=== PATIENT | male | born 1970 | race Hispanic/Latino ===

== ENCOUNTER 2016-07-04 09:53 | Emergency (ER) | payer OTHER, MEDICARE, MEDICAID ==
[2016-07-04 10:10] VITALS: RESP 18; TEMP 98.7; BMI 30.4
[2016-07-04] MEDS ORDERED: Naproxen 550 mg Tab PO STA (10:30)
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
[2016-07-04] MEDS ORDERED: Naproxen 550 mg Tab PO ONE (10:37)
[2016-07-04 12:08] VITALS: BP 126/72; PULSE 89
[2016-07-04 12:10] VITALS: O2SAT 97
--- NOTE | 2016-07-04 12:54 | RAD ---
PROCEDURE: Pelvis, left hip. HISTORY: trauma COMPARISON: None TECHNIQUE: Standard protocol for this study/examination. FINDINGS: There are no osseous abnormalities to suggest fracture. The pelvic ring is intact. Preserved femoral-acetabular relationship. Negative study for protrusio, subluxation or dislocation. Degenerative changes: None. IMPRESSION: No acute findings related to/accounting for the clinical presentation.
--- NOTE | 2016-07-04 12:55 | RAD ---
PROCEDURE: Left femur HISTORY: trauma COMPARISON: None TECHNIQUE: Standard protocol for this study/examination. FINDINGS: No significant/acute osseous, articular or soft tissue abnormalities. IMPRESSION: No acute findings related to/accounting for the clinical presentation.
== END 2016-07-04 12:20 | disposition home or self-care (01) ==
LOC: SUPCPDRO 09:53 → C.ER 09:53
DX: S73.102A Unspecified sprain of left hip, initial encounter (principal); V03.10XA Pedestrian on foot injured in collision with car, pick-up truck or van in traffic accident, initial encounter; Y92.410 Unspecified street and highway as the place of occurrence of the external cause

== ENCOUNTER 2017-10-26 23:29 | Inpatient (IN) | payer MEDICARE, MEDICAID ==
[2017-10-26 23:30] VITALS: BMI 30.4
--- NOTE | 2017-10-26 23:54 | C.PDOC ---
History Of Present Illness 47 yo hx of schizoprhenia, presents as transfer for admission to [facility]. pt has been reporting si. pt was medically cleared and accepted prior to his arrivlal today. denies any complaints at this time. Time Seen by Provider: 10/26/17 23:39 Chief Complaint (Nursing): Psychiatric Evaluation Past Medical History Reviewed: Historical Data, Nursing Documentation, Vital Signs Vital Signs: Last Vital Signs Temp 99 F 10/26/17 23:39 Pulse 79 10/26/17 23:39 Resp 20 10/26/17 23:39 BP 145/72 10/26/17 23:39 Pulse Ox 97 10/26/17 23:39 - Medical History PMH: Bronchitis, Cardia Arrhythmia, Depression, Schizophrenia (Schizoaffective disorder) Denies: Diabetes, Hepatitis, HIV, HTN, Chronic Kidney Disease, Seizures, Sexually Transmitted Disease - [facility] Procedures INDIVID PSYCHOTHERAP NEC (05/22/14) OTHER GROUP THERAPY (05/22/14) PSYCHIAT DRUG THERAP NEC (06/03/14) Family History: States: Unknown Family Hx - Social History Hx Tobacco Use: No Hx Alcohol Use: Yes Hx Substance Use: No - Immunization History Hx Tetanus Toxoid Vaccination: No Hx Influenza Vaccination: No Hx Pneumococcal Vaccination: No Review Of Systems Except As Marked, All Systems Reviewed And Found Negative. Physical Exam - Physical Exam Appears: Well, No Acute Distress Skin: Normal Color, Warm, Dry Eye(s): bilateral: Normal Inspection, PERRL, EOMI Nose: Normal Throat: Normal Neck: Normal Cardiovascular: Rhythm Regular Respiratory: Normal Breath Sounds Gastrointestinal/Abdominal: Normal Exam Back: Normal Inspection Extremity: Normal ROM ED Course And Treatment O2 Sat by Pulse Oximetry: 97 Medical Decision Making Medical Decision Making: for admission as transfer. no medical complaints. prevously cleared Disposition - Disposition Disposition: HOSPITALIZED Disposition Time: 23:53 Condition: STABLE - Clinical Impression Clinical Impression: Moderate major depression, single episode Decision To Admit - Pt Status Changed To: Hospital Disposition Of: Inpatient - Admit Certification Admit to Inpatient:: After my assessment, the patient will require hospitalization for at least two midnights. This is because of the severity of symptoms shown, intensity of services needed, and/or the medical risk in this patient being treated as an outpatient. - InPatient: Physician Admission Certification: I certify that this patient requires 2 or more midnights of care for the following reason:: si - . Bed Request Type: Psychiatry Admitting Physician: Shen Farley Patient Diagnosis: Moderate major depression, single episode
--- NOTE | 2017-10-27 01:51 | PCM.BM ---
Treatment Plan Problems - Problems identified on initial assessmt Depression Date Initiated: 10/27/17 Time Initiated: 01:49 Date resolved: 10/27/17 Assessment reference: NA Status: Active (hearing voices) Treatment assets and liabiliti Patient Assests: cooperative (pt. provided information about his illness.) Patient Liabilities: financial problems (leave in a skilled nursing, Pt. can not afford to pay rent), poor support system (leave alone in a skilled nursing, girlfriend moved to [facility]), medical problems (denies mdical problems), legal issue ( denies legal issues) - Milieu Protocol Maintain good personal hygiene: daily Encourage regular showers, daily Remind patient to perform daily oral care, every shift Assist patient to perform ADL's Conduct patient checks and document Observation sheet: Q15 minutes Maintain personal safety: every shift Educate patient to report safety concerns to staff, every shift Monitor environment for contraband/sharps Medication safety: Monitor for expected outcome, potential side effects: every shift, Assess barriers to learning: every shift, Assess readiness for medication education: every shift
[2017-10-27] MEDS ORDERED: Pneumococcal 23-Valent Vaccine IM ONE (02:07)
--- NOTE | 2017-10-27 22:56 | PCM.PSYCH ---
Initial Psychiatric Evaluation - Initial Psychiatric Evaluation Type of Admission: Voluntary Legal Status: Capacity Current Medications: Active Medications Generic Name Dose Route Start Last Admin Trade Name Freq PRN Reason Stop Dose Admin Hydroxyzine HCl 25 mg 10/27/17 02:48 10/27/17 17:07 Atarax PO 25 mg Q6 PRN Administration Anxiety Ibuprofen 400 mg 10/27/17 02:47 Motrin Tab PO Q6 PRN Pain, moderate (4-7) Pneumococcal Polyvalent Vaccine 0.5 ml 10/30/17 10:00 Pneumovax 23 Vaccine IM 10/30/17 10:01 .ONCE ONE Trazodone HCl 100 mg 10/27/17 02:15 10/27/17 21:31 Desyrel PO 100 mg HS MELISSA Administration Past Psychiatric History - Past Psychiatric History Pertinent Medical Hx (Current Medical&Sleep Prob, Allergies): Allergies Allergy/AdvReac Type Severity Reaction Status Date / Time No Known Allergies Allergy Verified 10/26/17 23:43 Depakote ER 250 mg PO BID 10/26/17 Hydroxyzine Pamoate 100 mg PO HS PRN 10/26/17 Risperidone [Risperdal] 2 mg PO DAILY 10/26/17
[2017-10-28 06:17] VITALS: O2SAT 100
--- NOTE | 2017-10-28 12:24 | PCM.PYCHPN ---
Psychiatric Progress Note - Psychiatric Progress Note Patient seen today, length of contact: 15 min Patient Chief Complaint: I am still hearing voices.' Problems Identified/Issues Discussed: Patient seen and evaluated, chart reviewed and discussed with the nurse. Patient remained disorganized and internally preoccupied. Patient remained isolated, confined and withdrawn. He still reports of hearing voices. Patient still appears paranoid and delusional. He still reports irritability, agitation and racing of thoughts. He is taking medication and denies any side effects. Symptoms are improving but needs more time for stabilization. Supportive therapy and psychoeducation were given. Medication Change: Yes Medical Record Reviewed: Yes Mental Status Examination - Cognitive Function Orientation: Person, Place, Situation, Time Memory: Intact Attention: WNL Concentration: Poor Association: Loose Fund of Knowledge: Poor - Mood Mood: Anxious - Affect Affect: Broad - Speech Speech: Pressured - Formal Thought Process Formal Thought Process: Hallucinations, Delusions, Paranoia, Loosening of associations, Flight of ideas - Suicidal Ideation Suicidal Ideation: No - Homicidal Ideation Homicidal Ideation: No Goal/Treatment Plan - Goal/Treatment Plan Need for Continued Stay: Remain at risks for inpatient hospitalization, Severe depression anxiety, Severe functional impairment Progress Toward Problem(s) and Goals/Treatment Plan: Schizoaffective disorder Risperdal 1 mg po BID Cogentin 1 mg PO BID Klonopn 1 mg PO BID Will titrate his medication according to his response. PRN meds for psychosis and carla Psychoeducation Supportive therapy provided Medication benefits and side effects discussed with the pt. Will consider to start [place] for his manic symptoms. Monitor vitals. - Smoking Cessation Smoking Cessation Initiated: No
[2017-10-30] MEDS ORDERED: Pneumococcal 23-Valent Vaccine IM ONE (10:00)
--- NOTE | 2017-10-30 14:40 | PCM.PYCHPN ---
Psychiatric Progress Note - Psychiatric Progress Note Patient seen today, length of contact: 15 min Patient Chief Complaint: I am still hearing voices.' Problems Identified/Issues Discussed: Patient seen and evaluated, chart reviewed and discussed with the nurse. The patient reports that he is still thinking of killing himself and still hears voices. He states that he doesnt know what he will do once he is discharged from the hospital as he does not want to [facility] the [facility]. The patient states that he will kill himself if he goes back to the [facility]. He states that he still hears a voice that is telling him to hurt himself. He is taking medication and denies any side effects. Symptoms are improving but needs more time for stabilization. Supportive therapy and psychoeducation were given. Medication Change: Yes Medical Record Reviewed: Yes Mental Status Examination - Cognitive Function Orientation: Person, Place, Situation, Time Memory: Intact Attention: WNL Concentration: Poor Association: Loose Fund of Knowledge: Poor - Mood Mood: Anxious - Affect Affect: Broad - Speech Speech: Pressured - Formal Thought Process Formal Thought Process: Hallucinations, Delusions, Paranoia, Loosening of associations, Flight of ideas - Suicidal Ideation Suicidal Ideation: No - Homicidal Ideation Homicidal Ideation: No Goal/Treatment Plan - Goal/Treatment Plan Need for Continued Stay: Remain at risks for inpatient hospitalization, Severe depression anxiety, Severe functional impairment Progress Toward Problem(s) and Goals/Treatment Plan: Schizoaffective disorder Risperdal 1 mg po BID Cogentin 1 mg PO BID Klonopn 1 mg PO BID Will titrate his medication according to his response. PRN meds for psychosis and carla Psychoeducation Supportive therapy provided Medication benefits and side effects discussed with the pt. Will consider to start [place] for his manic symptoms. Monitor vitals. Attend groups and activities daily
--- NOTE | 2017-11-01 07:59 | PCM.PYCHPN ---
Psychiatric Progress Note - Psychiatric Progress Note Patient seen today, length of contact: 15 min Patient Chief Complaint: I am still hearing voices.' Problems Identified/Issues Discussed: Patient seen and evaluated, chart reviewed and discussed with the nurse. The patient reports that he is still thinking of killing himself and still hears voices. He states that he doesnt know what he will do once he is discharged from the hospital as he does not want to go live in the [place] [facility]. The patient states that he will kill himself if he goes back to the [place] [facility]. He states that he still hears a voice that is telling him to hurt himself. He is taking medication and denies any side effects. Symptoms are improving but needs more time for stabilization. Supportive therapy and psychoeducation were given. Medication Change: Yes Medical Record Reviewed: Yes Mental Status Examination - Cognitive Function Orientation: Person, Place, Situation, Time Memory: Intact Attention: WNL Concentration: Poor Association: Loose Fund of Knowledge: Poor - Mood Mood: Anxious - Affect Affect: Broad - Speech Speech: Pressured - Formal Thought Process Formal Thought Process: Hallucinations, Delusions, Paranoia, Loosening of associations, Flight of ideas - Suicidal Ideation Suicidal Ideation: No - Homicidal Ideation Homicidal Ideation: No Goal/Treatment Plan - Goal/Treatment Plan Need for Continued Stay: Remain at risks for inpatient hospitalization, Severe depression anxiety, Severe functional impairment Progress Toward Problem(s) and Goals/Treatment Plan: Schizoaffective disorder Risperdal 1 mg po BID Cogentin 1 mg PO BID Klonopn 1 mg PO BID Will titrate his medication according to his response. PRN meds for psychosis and carla Psychoeducation Supportive therapy provided Medication benefits and side effects discussed with the pt. Will consider to start [place] for his manic symptoms. Monitor vitals. Attend groups and activities daily
--- NOTE | 2017-11-01 11:35 | PCM.BM ---
<NishLeela Berrios - Last Filed: 11/01/17 11:35> Treatment Plan Problems - Problems identified on initial assessmt Depression Date Initiated: 10/27/17 Time Initiated: 49 Date resolved: 10/27/17 Assessment reference: NA Status: Active (hearing voices) Treatment assets and liabiliti Patient Assests: cooperative (pt. provided information about his illness.) Patient Liabilities: financial problems (leave in a care home, Pt. can not afford to pay rent), poor support system (leave alone in a care home, girlfriend moved to [facility]), medical problems (denies mdical problems), legal issue ( denies legal issues) - Milieu Protocol Maintain good personal hygiene: daily Encourage regular showers, daily Remind patient to perform daily oral care, every shift Assist patient to perform ADL's Conduct patient checks and document Observation sheet: Q15 minutes Maintain personal safety: every shift Educate patient to report safety concerns to staff, every shift Monitor environment for contraband/sharps Medication safety: Monitor for expected outcome, potential side effects: every shift, Assess barriers to learning: every shift, Assess readiness for medication education: every shift Milieu Narrative: Schizoaffective disorder Risperdal 1 mg po BID Cogentin 1 mg PO BID Klonopn 1 mg PO BID Will titrate his medication according to his response. PRN meds for psychosis and carla Psychoeducation Supportive therapy provided Medication benefits and side effects discussed with the pt. Will consider to start [place] for his manic symptoms. Monitor vitals. Attend groups and activities daily Discharge/Continuing Care - Treatment Team Participation Patient/Family/SO Statement: Schizoaffective disorder Risperdal 1 mg po BID Cogentin 1 mg PO BID Klonopn 1 mg PO BID Will titrate his medication according to his response. PRN meds for psychosis and carla Psychoeducation Supportive therapy provided Medication benefits and side effects discussed with the pt. Will consider to start [place] for his manic symptoms. Monitor vitals. Attend groups and activities daily Treatment Plan Review - Problem Depression Time Initiated: - Discharge / Continuing Care Discharge to:: Longterm Behavioral Health Services: Adult day care Health Needs: Medications/Rx, Alcohol/Drug treatment <Justin Israel - Last Filed: 11/04/17 11:06> - Diagnosis (1) Depressed Status: Acute Interventions: 11/04/17 11:06 * Assess/adjust medications daily and /or as needed * See patient on an individual basis 7x/week to assess symptoms of depression * Monitor for side effects & effectiveness of medications *
--- NOTE | 2017-11-02 15:04 | PCM.PYCHPN ---
Psychiatric Progress Note - Psychiatric Progress Note Patient seen today, length of contact: 15 min Patient Chief Complaint: I am still hearing voices.' Problems Identified/Issues Discussed: Patient seen and evaluated, chart reviewed and discussed with the nurse. The patient reports that he is still thinking of killing himself and still hears voices. He states that he doesnt know what he will do once he is discharged from the hospital as he does not want to go live in the detention. The patient states that he will kill himself if he goes back to the detention. He states that he still hears a voice that is telling him to hurt himself. He is taking medication and denies any side effects. Symptoms are improving but needs more time for stabilization. Supportive therapy and psychoeducation were given. Medication Change: Yes Medical Record Reviewed: Yes Mental Status Examination - Cognitive Function Orientation: Person, Place, Situation, Time Memory: Intact Attention: WNL Concentration: Poor Association: Loose Fund of Knowledge: Poor - Mood Mood: Anxious - Affect Affect: Broad - Speech Speech: Pressured - Formal Thought Process Formal Thought Process: Hallucinations, Delusions, Paranoia, Loosening of associations, Flight of ideas - Suicidal Ideation Suicidal Ideation: No - Homicidal Ideation Homicidal Ideation: No Goal/Treatment Plan - Goal/Treatment Plan Need for Continued Stay: Remain at risks for inpatient hospitalization, Severe depression anxiety, Severe functional impairment Progress Toward Problem(s) and Goals/Treatment Plan: Schizoaffective disorder Risperdal 1 mg po BID Cogentin 1 mg PO BID Klonopn 1 mg PO BID Will titrate his medication according to his response. PRN meds for psychosis and carla Psychoeducation Supportive therapy provided Medication benefits and side effects discussed with the pt. Will consider to start [place] for his manic symptoms. Monitor vitals. Attend groups and activities daily
--- NOTE | 2017-11-02 15:04 | PCM.PYCHPN ---
Psychiatric Progress Note - Psychiatric Progress Note Patient seen today, length of contact: 15 min Patient Chief Complaint: I am still hearing voices.' Problems Identified/Issues Discussed: Patient seen and evaluated, chart reviewed and discussed with the nurse. The patient reports that he is still thinking of killing himself and still hears voices. He states that he doesnt know what he will do once he is discharged from the hospital as he does not want to go live in the correction. The patient states that he will kill himself if he goes back to the correction. He states that he still hears a voice that is telling him to hurt himself. He is taking medication and denies any side effects. Symptoms are improving but needs more time for stabilization. Supportive therapy and psychoeducation were given. Medication Change: Yes Medical Record Reviewed: Yes Mental Status Examination - Cognitive Function Orientation: Person, Place, Situation, Time Memory: Intact Attention: WNL Concentration: Poor Association: Loose Fund of Knowledge: Poor - Mood Mood: Anxious - Affect Affect: Broad - Speech Speech: Pressured - Formal Thought Process Formal Thought Process: Hallucinations, Delusions, Paranoia, Loosening of associations, Flight of ideas - Suicidal Ideation Suicidal Ideation: No - Homicidal Ideation Homicidal Ideation: No Goal/Treatment Plan - Goal/Treatment Plan Need for Continued Stay: Remain at risks for inpatient hospitalization, Severe depression anxiety, Severe functional impairment Progress Toward Problem(s) and Goals/Treatment Plan: Schizoaffective disorder Risperdal 1 mg po BID Cogentin 1 mg PO BID Klonopn 1 mg PO BID Will titrate his medication according to his response. PRN meds for psychosis and carla Psychoeducation Supportive therapy provided Medication benefits and side effects discussed with the pt. Will consider to start [place] for his manic symptoms. Monitor vitals. Attend groups and activities daily
--- NOTE | 2017-11-04 00:20 | PCM.PYCHPN ---
Psychiatric Progress Note - Psychiatric Progress Note Patient seen today, length of contact: 15 min Patient Chief Complaint: I am still hearing voices.' Problems Identified/Issues Discussed: Patient seen and evaluated, chart reviewed and discussed with the nurse. The patient reports that he is still thinking of killing himself and still hears voices. He states that he doesnt know what he will do once he is discharged from the hospital as he does not want to go live in the prison. The patient states that he will kill himself if he goes back to the prison. He states that he still hears a voice that is telling him to hurt himself. He is taking medication and denies any side effects. Symptoms are improving but needs more time for stabilization. Supportive therapy and psychoeducation were given. Medication Change: Yes Medical Record Reviewed: Yes Mental Status Examination - Cognitive Function Orientation: Person, Place, Situation, Time Memory: Intact Attention: WNL Concentration: Poor Association: Loose Fund of Knowledge: Poor - Mood Mood: Anxious - Affect Affect: Broad - Speech Speech: Pressured - Formal Thought Process Formal Thought Process: Hallucinations, Delusions, Paranoia, Loosening of associations, Flight of ideas - Suicidal Ideation Suicidal Ideation: No - Homicidal Ideation Homicidal Ideation: No Goal/Treatment Plan - Goal/Treatment Plan Need for Continued Stay: Remain at risks for inpatient hospitalization, Severe depression anxiety, Severe functional impairment Progress Toward Problem(s) and Goals/Treatment Plan: Schizoaffective disorder Risperdal 1 mg po BID Cogentin 1 mg PO BID Klonopn 1 mg PO BID Will titrate his medication according to his response. PRN meds for psychosis and carla Psychoeducation Supportive therapy provided Medication benefits and side effects discussed with the pt. Will consider to start Basehor for his manic symptoms. Monitor vitals. Attend groups and activities daily
[2017-11-04 06:47] VITALS: BP 120/73; PULSE 92; RESP 20; TEMP 98.3
--- NOTE | 2017-11-04 11:02 | PCM.PYCHDC ---
Mental Status Examination - Mental Status Examination Orientation: Person, Place, Situation, Time Memory: Intact Mood: Neutral Affect: Constricted Speech: Soft Attention: WNL Concentration: WNL Association: WNL Fund of Knowledge: WNL Formal Thought Process: No Impairment Description of patient's judgement and insight: good, fair Psychotic Thoughts and Behaviors: denies any AVH Suicidal Ideation: No Current Homicidal Ideation?: No Discharge Summary - Discharge Note Consultations:: List each consultation separately and include: 1. Reason for request. 2. Findings. 3. Follow-up Summary of Hospital Course include:: 1. Description of specific treatment plan utilized for patients during their course of treatmen. 2. Summarize the time- course for resolution of acute symptoms and/or regressed behaviors. 3. Describe issues identified and worked on during hospitalization. 4. Describe medication utilized. 5. Describe medical problems identified and treated. 6. Reassessment of suicide risk - Final Diagnosis (DSM 5) Condition upon Discharge: STABLE Disposition: HOME/ ROUTINE Follow-up Treatment Plan: Schizoaffective disorder Risperdal 1 mg po BID Cogentin 1 mg PO BID Klonopn 1 mg PO BID Will titrate his medication according to his response. PRN meds for psychosis and carla Psychoeducation Supportive therapy provided Medication benefits and side effects discussed with the pt. Will consider to start Salix for his manic symptoms. Monitor vitals. Attend groups and activities daily Prescriptions/Medication Reconciliation: Benztropine [Cogentin] 1 mg PO BID #60 tab Gabapentin [Neurontin] 300 mg PO BID #60 cap risperiDONE [RisperDAL Tab] 2 mg PO BID #60 tab Sertraline [Zoloft] 100 mg PO DAILY #30 tab traZODone [Desyrel] 100 mg PO HS #30 tab
== END 2017-11-04 12:40 | disposition home or self-care (01) | DRG 885 ==
LOC: C.ER 23:29 → C.5E 23:44 → C.9E 23:44
PROC: GZHZZZZ Group Psychotherapy (ICD-10-PCS; principal; 2017-10-26)
DX: F25.9 Schizoaffective disorder, unspecified (principal); F32.1 Major depressive disorder, single episode, moderate

== ENCOUNTER 2017-12-25 17:37 | Inpatient (IN) | payer MEDICARE, MEDICAID ==
[2017-12-25 18:18] VITALS: BMI 31.6
[2017-12-25 19:18] LABS: BASO # 0.1 K/uL (0.0-0.2); BASO % 1.4 % (0.0-2.0); EOS # 0.5 K/uL (0.0-0.7); EOS % 4.6 % (0.0-4.0); HEMOGLOBIN 14.8 g/dL (12.0-18.0); LYMPH # 2.4 K/uL (1.0-4.3); MEAN CELL VOLUME 90.4 fL (80.0-94.0); MEAN CORPUSCULAR HEMOGLOBIN 31.9 pg (27.0-31.0); MEAN CORPUSCULAR HGB CONC 35.3 g/dL (33.0-37.0); MEAN PLATELET VOLUME 7.4 fL (7.2-11.7); MONO # 0.7 K/uL (0.0-0.8); MONO % 7.2 % (0.0-10.0); NEUT % 61.8 % (50.0-75.0); NRBC % 0.1 % (0.0-2.0); RBC 4.65 Mil/uL (4.40-5.90); RED CELL DISTRIBUTION WIDTH 13.5 % (11.5-14.5); WHITE BLOOD COUNT 9.7 K/uL (4.8-10.8)
--- NOTE | 2017-12-25 19:18 | C.PDOC ---
History Of Present Illness 47 year old male with PMHx of schizophrenia and depression taking multiple medications, presents to the ED for evaluation. Patient states his medications are no longer working and feels more depressed and is having trouble sleeping. Patient reports he is now hearing voices that tell him to take all his medications together at once. Patient sees Dr. Israel but did not call him today. Patient has prior history of suicide attempts by overdose. Patient denies HI, visual hallucinations, CP, SOB, nausea, vomit, injury, fall, trauma. Time Seen by Provider: 12/25/17 18:43 Chief Complaint (Nursing): Psychiatric Evaluation History Per: Patient History/Exam Limitations: no limitations Onset/Duration Of Symptoms: Days Current Symptoms Are (Timing): Still Present Suicide/Self Injury Attempted (Context): Ingestion Modifying Factor(s): Other Associated Symptoms: Depression, Suicidal Thoughts, Suicidal Plan Involuntary Hold By: None Recent travel outside of the [place]: No Additional History Per: Patient Past Medical History Reviewed: Historical Data, Nursing Documentation, Vital Signs Vital Signs: Last Vital Signs Temp 98.5 F 12/25/17 22:13 Pulse 93 H 12/25/17 22:13 Resp 18 12/25/17 22:13 BP 133/85 12/25/17 22:13 Pulse Ox 95 12/25/17 22:13 - Medical History PMH: Anxiety, Bronchitis, Cardia Arrhythmia, Depression, Schizophrenia Denies: Bipolar Disorder (PT DENIES), Diabetes, Hepatitis, HIV, HTN, Chronic Kidney Disease, Seizures, Sexually Transmitted Disease Surgical History: No Surg Hx - [facility] Procedures GROUP PSYCHOTHERAPY (10/26/17) INDIVID PSYCHOTHERAP NEC (05/22/14) OTHER GROUP THERAPY (05/22/14) PSYCHIAT DRUG THERAP NEC (06/03/14) Family History: States: Unknown Family Hx - Social History Hx Tobacco Use: No Hx Alcohol Use: Yes Hx Substance Use: No (PT DENIES) - Immunization History Hx Tetanus Toxoid Vaccination: No Hx Influenza Vaccination: No Hx Pneumococcal Vaccination: No Review Of Systems Constitutional: Negative for: Fever, Chills Cardiovascular: Negative for: Chest Pain Respiratory: Negative for: Shortness of Breath Gastrointestinal: Negative for: Nausea, Vomiting Neurological: Negative for: Weakness, Numbness Psych: Positive for: Depression, Suicidal ideation Physical Exam - Physical Exam Appears: Non-toxic, No Acute Distress Skin: Normal Color, Warm, Dry Head: Atraumatic, Normacephalic Eye(s): bilateral: Normal Inspection Oral Mucosa: Moist Neck: Normal ROM, Supple Chest: Symmetrical Cardiovascular: Rhythm Regular Respiratory: No Rales, No Rhonchi Gastrointestinal/Abdominal: Soft, No Tenderness, No Guarding, No Rebound Extremity: Normal ROM, No Tenderness, No Swelling Neurological/Psych: Oriented x3, Normal Speech, Normal Cognition Gait: Steady ED Course And Treatment - Laboratory Results Result Diagrams: 12/25/17 19:14 12/25/17 19:14 Lab Interpretation: No Acute Changes O2 Sat by Pulse Oximetry: 97 (ON RA) Pulse Ox Interpretation: Normal Progress Note: Patient is medically cleared for psychiatric admission. Medical Decision Making Medical Decision Making: Plan: * Labs * UA * 1:1 Obs * Crisis evaluation Disposition - Disposition Disposition: HOSPITALIZED Disposition Time: 23:02 Condition: STABLE - POA Present On Arrival: None - Clinical Impression Clinical Impression: Single major depressive episode, severe, with psychosis - Scribe Statement The provider has reviewed the documentation as recorded by the Scribe [place] All medical record entries made by the Scribe were at my direction and personally dictated by me. I have reviewed the chart and agree that the record accurately reflects my personal performance of the history, physical exam, medical decision making, and the department course for this patient. I have also personally directed, reviewed, and agree with the discharge instructions and disposition.
[2017-12-25 19:27] LABS: SQUAMOUS EPITHIAL < 1 /hpf (0-5); URINE BILIRUBIN NEGATIVE (NEGATIVE); URINE BLOOD NEGATIVE (NEGATIVE); URINE CLARITY Clear (Clear); URINE COLOR Yellow (YELLOW); URINE GLUCOSE (UA) NORMAL (Normal); URINE LEUKOCYTE ESTERASE NEG Leu/uL (Negative); URINE PROTEIN NEGATIVE (NEGATIVE); URINE UROBILINOGEN NORMAL mg/dL (0.2-1.0)
[2017-12-25 19:34] LABS: ALB/GLOB RATIO 1.5 (1.0-2.1); ALBUMIN 4.3 g/dL (3.5-5.0); ALT/SGPT 33 U/L (21-72); AST/SGOT 21 U/L (17-59); BLOOD UREA NITROGEN 13 mg/dL (9-20); CALCIUM 9.6 mg/dl (8.6-10.4); GFR NON-AFRICAN AMERICAN > 60
[2017-12-25 19:46] LABS: BARBITURATES, UR NEGATIVE (NEGATIVE); BENZODIAZEPINES, UR NEGATIVE (NEGATIVE); OPIATES, UR NEGATIVE (NEGATIVE); PHENCYCLIDINE, UR NEGATIVE (NEGATIVE)
--- NOTE | 2017-12-26 00:37 | PCM.BM ---
<Ramiro Ma - Last Filed: 12/26/17 00:34> Treatment Plan Problems - Problems identified on initial assessmt DEPRESSION Date Initiated: 12/26/17 Time Initiated: 00:00 Assessment reference: NA Status: Active Treatment assets and liabiliti Patient Assests: adapts well, cooperative (pt. provided information about his illness.), insightful, self-reliant, ADL independent, physically healthy, negotiates basic needs Patient Liabilities: live alone, financial problems, poor support system, substance abuse, legal issue - Milieu Protocol Maintain good personal hygiene: daily Encourage regular showers, daily Remind patient to perform daily oral care, daily Assist patient to perform ADL's Maintain personal safety: every shift Educate patient to report safety concerns to staff, every shift Monitor environment for contraband/sharps Medication safety: Monitor for expected outcome, potential side effects: every shift, Assess barriers to learning: every shift, Assess readiness for medication education: every shift <Justin Israel - Last Filed: 12/30/17 11:06> - Diagnosis (1) Schizoaffective disorder Status: Chronic Interventions: 12/30/17 11:07 * Assess/adjust medications daily and /or as needed * See patient on an individual basis 7x/week to assess status of hallucinations * Discuss risks, benefits, side effects and alternatives of medications * <Elma Bar - Last Filed: 12/30/17 14:44> Family Contact Family involvement: Patient does not wish Family/SO involvement Family contact: Patient declines to allow family contact at present - Goals for Treatment Patient goals for treatment: "[facility] Discharge/Continuing Care - Education Needs Education Needs: Patient Medication, Patient Diagnosis/Disease Process, Patient Coping Skills, Patient Placement options, Patient Community resources - Discharge Discharge Criteria: Free of Suicidal thoughts, Ability to care for self, Reduction of target symptoms Discharge to:: [facility] - Treatment Team Participation Discussed with Family/SO: No Was Patient/Family/SO present at Treatment Team Meeting: Yes
--- NOTE | 2017-12-26 09:41 | PCM.PSYCH ---
Initial Psychiatric Evaluation - Initial Psychiatric Evaluation Type of Admission: Voluntary Legal Status: Capacity Chief Complaint (in patient's own words): I was shearing voices to kill myself.' History of Present Illness and Precipitating Events: Patient is a 47 year old CM who presented to the ED for SI and auditory hallucination. Pt reports history of multiple inpatient psychiatric hospitalizations, he was just discharged from [facility] few weeks ago ago and [facility], 2 months ago for the same reason. The patient upon discharged aftercare plan was to follow up with psychiatrist, Dr. Ervin. The patient did not attend the appointment and is not receiving outpatient treatment. The patient reports being compliant with taking his medication as prescribed. The patient has one previous suicide attempt in 1997 by attempting to overdose with pills. The patient denies any recent suicide attempts. The patient's PMD is Dr. Artemio Thomson and the patient was last seen 2 months ago. The patient denies current substance use, but reports previous Cocaine use at the age of [age] years old. The patient is currently residing in a homeless assisted, [facility] for the past month and also attends a day program, [address] [place] [address]. The patient reports the day program for leisure time for 6-7 hours on daily, but the program does not provide any therapeutic services. The patient is unemployed and is receiving social security disability benefits for mental health condition. The patient reports being diagnosed at the age of 89 years old with Schizoaffective Disorder. Patient reports of depressed mood, feelings of hopelessness and helplessness, poor sleep and poor appetite. Patient reports of hearing voices, AH command type to kill himself and VH seeing shadows. PMH: HTN Past Psychiatric History - Past Psychiatric History Previous Treatment History: Inpatient Pertinent Medical Hx (Current Medical&Sleep Prob, Allergies): Allergies Allergy/AdvReac Type Severity Reaction Status Date / Time No Known Allergies Allergy Verified 12/25/17 18:16 QUEtiapine [SEROquel] 50 mg PO DAILY #14 tab 12/10/17 Quetiapine Fumarate [Seroquel] 200 mg PO HS #14 tab 12/10/17 LORazepam [Ativan] 2 mg PO DAILY PRN 12/25/17 Risperdal mg PO DAILY 12/25/17 Review of Systems - Review of Systems All systems: reviewed and no additional remarkable complaints except - Psychiatric Psychiatric: Anxiety, Auditory Hallucinations, Irritability, Paranoia, Suicidal Ideation Mental Status Examination - Personal Presentation Personal Presentation: Looks stated age - Affect Affect: Constricted, Depressed - Motor Activity Motor Activity: Calm - Reliability in Providing Information Reliability in Providing Information: Poor, due to alteration in thoughts, Poor , due to altered mood - Speech Speech: Disorganized - Mood Mood: Depressed, Anxious - Formal Thought Process Formal Thought Process: Hallucinations, Delusions, Paranoia, Loosening of associations - Hallucinations/Delusions Hallucinations: Visual, Auditory Delusions: Persecution - Cognitive Functions Orientation: Person, Place, Situation, Time Sensorium: Alert Attention/Concentration: Attentive Abstract Thinking: [place] Estimate of Intelligence: Below average Judgement: Imparied, as evidence by: Poor judgement, Imparied, as evidence by: Lack of insight into illness - Risk Risk: Suicidal, Diminished functioning - Limitations Limitations: Living alone DSM 5 DX - DSM 5 DSM 5 Diagnosis: Schizoaffective disorder bipolar type - Recommended/Plan of Treatment Treatment Recommendations and Plan of Treatment: Schizoaffective disorder bipolar type CBT Psychoeducation Supportive therapy, group therapy, individual therapy Hydroxyzine 25 mg by mouth every 6 hours when necessary Seroquel 100 mg PO QHS Gabapentin 300 mg po BID
--- NOTE | 2017-12-28 14:40 | PCM.PYCHPN ---
Psychiatric Progress Note - Psychiatric Progress Note Patient seen today, length of contact: 15 min Patient Chief Complaint: I'm still hearing voices Problems Identified/Issues Discussed: Patient seen and evaluated, chart reviewed and discussed with the nurse. Pt reports depressed mood, and reports feelings of hopelessness and helplessness. Pt remained isolated and withdrawn, and confined to his room. Patient reports auditory hallucinations, visual hallucinations, and paranoia. Patient is compliant with medications and denies any side effects. Symptoms are improving but pt needs more time to stabilize. Support and psychoeducation given. Medication Change: Yes Medical Record Reviewed: Yes Mental Status Examination - Cognitive Function Orientation: Person, Place, Situation, Time Memory: Intact Attention: WNL Concentration: Poor Association: WNL Fund of Knowledge: Poor - Mood Mood: Depressed, Anxious - Affect Affect: Constricted, Depressed - Speech Speech: Soft - Formal Thought Process Formal Thought Process: Hallucinations, Delusions, Paranoia, Loosening of associations - Suicidal Ideation Suicidal Ideation: No - Homicidal Ideation Homicidal Ideation: No Goal/Treatment Plan - Goal/Treatment Plan Need for Continued Stay: Severe depression anxiety, Severe functional impairment Progress Toward Problem(s) and Goals/Treatment Plan: Schizoaffective disorder bipolar type CBT Psychoeducation Supportive therapy, group therapy, individual therapy Hydroxyzine 25 mg by mouth every 6 hours when necessary Seroquel 50 mg PO Q Daily Seroquel 100 mg PO QHS Gabapentin 300 mg po TID Cannabis use disorder severe Monitor signs and symptoms Use [place] for abstinence
--- NOTE | 2017-12-30 11:07 | PCM.PYCHPN ---
Psychiatric Progress Note - Psychiatric Progress Note Patient seen today, length of contact: 15 min Patient Chief Complaint: I'm feeling terrible Problems Identified/Issues Discussed: The pt is seen, chart reviewed, case discussed with staff. The pt is compliant with medications Pt reports depression Pt reports auditory hallucination Pt appears withdrawn Pt has been sleeping throughout the day and night Symptoms are improving but needs more time to stabilize. Support given, psycho-education provided. After care discussed. Medication Change: Yes Medical Record Reviewed: Yes Mental Status Examination - Cognitive Function Orientation: Person, Place, Situation, Time Memory: Intact Attention: WNL Concentration: Poor Association: WNL Fund of Knowledge: Poor - Mood Mood: Depressed, Anxious - Affect Affect: Constricted, Depressed - Speech Speech: Soft - Formal Thought Process Formal Thought Process: Hallucinations, Delusions, Paranoia, Loosening of associations - Suicidal Ideation Suicidal Ideation: No - Homicidal Ideation Homicidal Ideation: No Goal/Treatment Plan - Goal/Treatment Plan Need for Continued Stay: Severe depression anxiety, Severe functional impairment Progress Toward Problem(s) and Goals/Treatment Plan: Schizoaffective disorder bipolar type CBT Psychoeducation Supportive therapy, group therapy, individual therapy Hydroxyzine 25 mg by mouth every 6 hours when necessary DC Seroquel 50 mg PO Q Daily Seroquel 100 mg PO QHS Gabapentin 300 mg po TID Risperdal 1 mg PO BID Cannabis use disorder severe Monitor signs and symptoms Use [place] for abstinence
--- NOTE | 2018-01-02 00:48 | PCM.PYCHPN ---
Psychiatric Progress Note - Psychiatric Progress Note Patient seen today, length of contact: 15 min Patient Chief Complaint: I'm feeling terrible Problems Identified/Issues Discussed: The pt is seen, chart reviewed, case discussed with staff. The pt is compliant with medications Pt reports depression. Pt reports auditory hallucination Pt appears withdrawn. Pt has been sleeping throughout the day and night. Symptoms are improving but needs more time to stabilize. Support given, psycho- education provided. After care discussed. Medication Change: Yes Medical Record Reviewed: Yes Mental Status Examination - Cognitive Function Orientation: Person, Place, Situation, Time Memory: Intact Attention: WNL Concentration: Poor Association: WNL Fund of Knowledge: Poor - Mood Mood: Depressed, Anxious - Affect Affect: Constricted, Depressed - Speech Speech: Soft - Formal Thought Process Formal Thought Process: Hallucinations, Delusions, Paranoia, Loosening of associations - Suicidal Ideation Suicidal Ideation: No - Homicidal Ideation Homicidal Ideation: No Goal/Treatment Plan - Goal/Treatment Plan Need for Continued Stay: Severe depression anxiety, Severe functional impairment Progress Toward Problem(s) and Goals/Treatment Plan: Schizoaffective disorder bipolar type CBT Psychoeducation Supportive therapy, group therapy, individual therapy Hydroxyzine 25 mg by mouth every 6 hours when necessary DC Seroquel 50 mg PO Q Daily Seroquel 100 mg PO QHS Gabapentin 300 mg po TID Risperdal 1 mg PO BID Cannabis use disorder severe Monitor signs and symptoms Use [place] for abstinence
--- NOTE | 2018-01-03 10:41 | PCM.PYCHPN ---
Psychiatric Progress Note - Psychiatric Progress Note Patient seen today, length of contact: 15 min Patient Chief Complaint: I'm feeling little better Problems Identified/Issues Discussed: The pt is seen, chart reviewed, case discussed with staff. The pt is compliant with medications Pt still reports depressed mood and at times helplessness. He reports improvement in the sleep. But still reports paranoia and hallucinations. Pt appears withdrawn. Symptoms are improving but needs more time to stabilize. Support given, psycho-education provided. After care discussed. Medication Change: Yes Medical Record Reviewed: Yes Mental Status Examination - Cognitive Function Orientation: Person, Place, Situation, Time Memory: Intact Attention: WNL Concentration: Poor Association: WNL Fund of Knowledge: Poor - Mood Mood: Depressed, Anxious - Affect Affect: Constricted, Depressed - Speech Speech: Soft - Formal Thought Process Formal Thought Process: Hallucinations, Delusions - Suicidal Ideation Suicidal Ideation: No - Homicidal Ideation Homicidal Ideation: No Goal/Treatment Plan - Goal/Treatment Plan Need for Continued Stay: Severe depression anxiety, Severe functional impairment Progress Toward Problem(s) and Goals/Treatment Plan: Schizoaffective disorder bipolar type CBT Psychoeducation Supportive therapy, group therapy, individual therapy Hydroxyzine 25 mg by mouth every 6 hours when necessary Seroquel 100 mg PO QHS Gabapentin 300 mg po TID Risperdal 1 mg PO BID Wellbutrin 100 mg PO Daily Cannabis use disorder severe Monitor signs and symptoms Use [place] for abstinence
--- NOTE | 2018-01-04 16:59 | PCM.PYCHPN ---
Psychiatric Progress Note - Psychiatric Progress Note Patient seen today, length of contact: 15 min Patient Chief Complaint: "A little better" Problems Identified/Issues Discussed: The pt is seen, chart reviewed, case discussed with staff. Support and psychoeducation given, CBT and UT used briefly No new symptoms reported, improving slowly and needs more time No SEs from medications, risks discussed. After care discussed Medication Change: No Medical Record Reviewed: Yes Mental Status Examination - Cognitive Function Orientation: Person, Place, Situation, Time Memory: Intact Attention: WNL Concentration: Poor Association: WNL Fund of Knowledge: Poor - Mood Mood: Depressed, Anxious - Affect Affect: Constricted, Depressed - Speech Speech: Soft - Formal Thought Process Formal Thought Process: Hallucinations, Delusions - Suicidal Ideation Suicidal Ideation: No - Homicidal Ideation Homicidal Ideation: No Goal/Treatment Plan - Goal/Treatment Plan Need for Continued Stay: Severe depression anxiety, Discharge may exacerbated symptoms, Severe functional impairment Progress Toward Problem(s) and Goals/Treatment Plan: Continue medications Support and psychoeducation daily Attend groups and activities daily After care planning by MONSERRAT
[2018-01-05 06:41] VITALS: RESP 20
[2018-01-06 06:12] VITALS: BP 109/70; PULSE 89; TEMP 97.8; O2SAT 96
--- NOTE | 2018-01-06 08:28 | PCM.BM ---
Treatment Plan Problems - Problems identified on initial assessmt DEPRESSION Date Initiated: 12/26/17 Time Initiated: 00:00 Assessment reference: NA Status: Active Treatment assets and liabiliti Patient Assests: adapts well, cooperative (pt. provided information about his illness.), insightful, self-reliant, ADL independent, physically healthy, negotiates basic needs Patient Liabilities: live alone, financial problems, poor support system, substance abuse, legal issue - Milieu Protocol Maintain good personal hygiene: daily Encourage regular showers, daily Remind patient to perform daily oral care, daily Assist patient to perform ADL's Maintain personal safety: every shift Educate patient to report safety concerns to staff, every shift Monitor environment for contraband/sharps Medication safety: Monitor for expected outcome, potential side effects: every shift, Assess barriers to learning: every shift, Assess readiness for medication education: every shift Milieu Narrative: Continue medications Support and psychoeducation daily Attend groups and activities daily After care planning by SW Family Contact Family involvement: Patient does not wish Family/SO involvement Family contact: Patient declines to allow family contact at present - Goals for Treatment Patient goals for treatment: "[facility] want to return to [facility]." Discharge/Continuing Care - Education Needs Education Needs: Patient Medication, Patient Diagnosis/Disease Process, Patient Coping Skills, Patient Placement options, Patient Community resources - Discharge Discharge Criteria: Free of Suicidal thoughts, Ability to care for self, Reduction of target symptoms [facility]charge to[facility] - Treatment Team Participation Patient/Family/SO Statement: Continue medications Support and psychoeducation daily Attend groups and activities daily After care planning by SW Discussed with Family/SO: No Was Patient/Family/SO present at Treatment Team Meeting: Yes Treatment Plan Review - Problem DEPRESSION Time Initiated: 00:00 - Discharge / Continuing Care Discharge to:: Jail Behavioral Health Services: Partial hospital Health Needs: Follow up care/test, Medications/Rx
--- NOTE | 2018-01-06 11:42 | PCM.PYCHDC ---
Mental Status Examination - Mental Status Examination Orientation: Person, Place, Situation, Time Memory: Intact Mood: Neutral Affect: Constricted Speech: Soft Attention: WNL Concentration: WNL Association: WNL Fund of Knowledge: WNL Formal Thought Process: No Impairment Description of patient's judgement and insight: good, fair Psychotic Thoughts and Behaviors: denies any AVH Suicidal Ideation: No Current Homicidal Ideation?: No Discharge Summary - Discharge Note Reason for Hospitalization: Patient is a 47 year old CM who presented to the ED for SI and auditory hallucination. Pt reports history of multiple inpatient psychiatric hospitalizations, he was just discharged from [facility] few weeks ago ago and [facility], 2 months ago for the same reason. The patient upon discharged aftercare plan was to follow up with psychiatrist, Dr. Ervin. The patient did not attend the appointment and is not receiving outpatient treatment. The patient reports being compliant with taking his medication as prescribed. The patient has one previous suicide attempt in 1997 by attempting to overdose with pills. The patient denies any recent suicide attempts. The patient's PMD is Dr. Artemio Thomson and the patient was last seen 2 months ago. The patient denies current substance use, but reports previous Cocaine use at the age of [age] years old. The patient is currently residing in a homeless residential, [facility] for the past month and also attends a day program, [address] [place] [address]. The patient reports the day program for leisure time for 6-7 hours on daily, but the program does not provide any therapeutic services. The patient is unemployed and is receiving social security disability benefits for mental health condition. The patient reports being diagnosed at the age of 89 years old with Schizoaffective Disorder. Patient reports of depressed mood, feelings of hopelessness and helplessness, poor sleep and poor appetite. Patient reports of hearing voices, AH command type to kill himself and VH seeing shadows. Consultations:: List each consultation separately and include: 1. Reason for request. 2. Findings. 3. Follow-up Summary of Hospital Course include:: 1. Description of specific treatment plan utilized for patients during their course of treatmen. 2. Summarize the time- course for resolution of acute symptoms and/or regressed behaviors. 3. Describe issues identified and worked on during hospitalization. 4. Describe medication utilized. 5. Describe medical problems identified and treated. 6. Reassessment of suicide risk Summary of Hospital Course: Patient is a 47 year old CM who presented to the ED for SI and auditory hallucination. Pt reports history of multiple inpatient psychiatric hospitalizations, he was just discharged from [facility] few weeks ago ago and [facility], 2 months ago for the same reason. The patient upon discharged aftercare plan was to follow up with psychiatrist, Dr. Ervin. The patient did not attend the appointment and is not receiving outpatient treatment. The patient reports being compliant with taking his medication as prescribed. The patient has one previous suicide attempt in 1997 by attempting to overdose with pills. The patient denies any recent suicide attempts. The patient's PMD is Dr. Artemio Thomson and the patient was last seen 2 months ago. The patient denies current substance use, but reports previous Cocaine use at the age of [age] years old. The patient is currently residing in a homeless residential, [facility] for the past month and also attends a day program, [address] [place] [address]. The patient reports the day program for leisure time for 6-7 hours on daily, but the program does not provide any therapeutic services. The patient is unemployed and is receiving social security disability benefits for mental health condition. The patient reports being diagnosed at the age of 89 years old with Schizoaffective Disorder. Patient reports of depressed mood, feelings of hopelessness and helplessness, poor sleep and poor appetite. Patient reports of hearing voices, AH command type to kill himself and VH seeing shadows. PMH: HTN - Diagnosis (1) Schizoaffective disorder Current Visit: No Status: Chronic Priority: Medium - Final Diagnosis (DSM 5) Condition upon Discharge: STABLE Disposition: HOME/ ROUTINE Follow-up Treatment Plan: Schizoaffective disorder bipolar type CBT Psychoeducation Supportive therapy, group therapy, individual therapy Hydroxyzine 25 mg by mouth every 6 hours when necessary Seroquel 100 mg PO QHS Gabapentin 300 mg po TID Risperdal 1 mg PO BID Wellbutrin 100 mg PO Daily Cannabis use disorder severe Monitor signs and symptoms Use [place] for abstinence Prescriptions/Medication Reconciliation: buPROPion [Wellbutrin] 100 mg PO DAILY #30 tab Gabapentin [Neurontin] 300 mg PO BID #60 cap QUEtiapine [Seroquel] 100 mg PO HS #30 tab risperiDONE [RisperDAL Tab] 1 mg PO BID #60 tab
== END 2018-01-06 12:31 | disposition home or self-care (01) | DRG 885 ==
LOC: C.ER 17:37 → C.5E 23:02
PROVIDERS: ADMIT Psychiatry & Neurology Psychiatry; ATTEND Psychiatry & Neurology Psychiatry
PROC: GZHZZZZ Group Psychotherapy (ICD-10-PCS; principal; 2017-12-25)
PROC: GZ56ZZZ Individual Psychotherapy, Supportive (ICD-10-PCS; 2017-12-25)
DX: F25.0 Schizoaffective disorder, bipolar type (principal); F12.10 Cannabis abuse, uncomplicated

== ENCOUNTER 2018-04-19 08:13 | Inpatient (IN) | payer MEDICARE, MEDICAID ==
[2018-04-19 08:13] VITALS: BMI 31.6
[2018-04-19] MEDS ORDERED: Tmp-Smz 800 mg-160 mg DS Tab PO STA (08:33)
[2018-04-19] MEDS ORDERED: Tmp-Smz 800 mg-160 mg DS Tab ONE (08:46)
[2018-04-19] MEDS ORDERED: Permethrin 1% Kit 59 ML BOTTLE TOP STA ×2 (08:49→09:08)
[2018-04-19] MEDS ORDERED: Vancomycin 1 GM 1 GM/250 ML BAG IVPB STA (09:29)
[2018-04-19] MEDS ORDERED: Permethrin 1% Kit 59 ML BOTTLE TOP ONE (09:30)
[2018-04-19] MEDS ORDERED: Vancomycin 1 GM 1 GM/250 ML BAG IVPB ONE (10:21)
[2018-04-19 10:22] LABS: BASO # 0.1 K/uL (0.0-0.2); BASO % 1.3 % (0.0-2.0); EOS % 0.1 % (0.0-4.0); HEMOGLOBIN 14.7 g/dL (12.0-18.0); LYMPH # 1.9 K/uL (1.0-4.3); LYMPH % 25.7 % (20.0-40.0); MEAN CELL VOLUME 91.1 fL (80.0-94.0); MEAN CORPUSCULAR HEMOGLOBIN 31.5 pg (27.0-31.0); MEAN CORPUSCULAR HGB CONC 34.6 g/dL (33.0-37.0); MEAN PLATELET VOLUME 7.6 fL (7.2-11.7); MONO % 13.4 % (0.0-10.0); NEUT # 4.4 K/uL (1.8-7.0); NEUT % 59.5 % (50.0-75.0); RBC 4.67 Mil/uL (4.40-5.90); RED CELL DISTRIBUTION WIDTH 14.9 % (11.5-14.5); WHITE BLOOD COUNT 7.4 K/uL (4.8-10.8)
--- NOTE | 2018-04-19 10:22 | C.PDOC ---
History Of Present Illness 48 year old male presents to the ED for evaluation of painless skin lesions to his face, chest and abdominal regions that have been worsening over the past 3 days. Patient states he lives in a homeless longterm and has a history of scabies x 2. Patient claims he drinks three drinks per day, states he has not had alcohol intake in the past two days. Patient states his rash is non-pruritic. He denies fever, chills. Time Seen by Provider: 04/19/18 08:32 Chief Complaint (Nursing): Abnormal Skin Integrity History Per: Patient History/Exam Limitations: no limitations Onset/Duration Of Symptoms: Days (3) Current Symptoms Are (Timing): Worse Quality Of Symptoms: denies: Itching Additional History Per: Patient Past Medical History Reviewed: Historical Data, Nursing Documentation, Vital Signs Vital Signs: Last Vital Signs Temp 99.8 F H 04/19/18 08:29 Pulse 121 H 04/19/18 08:44 Resp 18 04/19/18 08:44 BP 133/88 04/19/18 08:44 Pulse Ox 95 04/19/18 08:44 - Medical History PMH: Anxiety, Bronchitis, Cardia Arrhythmia, Depression, Schizophrenia Denies: Bipolar Disorder (PT DENIES), Diabetes, Hepatitis, HIV, HTN, Chronic Kidney Disease, Seizures, Sexually Transmitted Disease Surgical History: No Surg Hx - [facility] Procedures GROUP PSYCHOTHERAPY (12/25/17) INDIVID PSYCHOTHERAP NEC (05/22/14) INDIVIDUAL PSYCHOTHERAPY, SUPPORTIVE (12/25/17) OTHER GROUP THERAPY (05/22/14) PSYCHIAT DRUG THERAP NEC (06/03/14) Family History: States: Unknown Family Hx - Social History Hx Tobacco Use: No Hx Alcohol Use: Yes (Occasionaly) Hx Substance Use: Yes - Immunization History Hx Tetanus Toxoid Vaccination: No Hx Influenza Vaccination: No Hx Pneumococcal Vaccination: No Review Of Systems Skin: Positive for: Other (painless, non-pruritic skin lesions to face, chest and abdomen ) Physical Exam - Physical Exam Appears: Non-toxic, No Acute Distress Skin: Other (innumerable pustules consistent with folliculitis to abdomen, back and chest. confluent rash with crusting to facial scalp and behind right ear ) Head: Atraumatic, Normacephalic Eye(s): bilateral: Normal Inspection Oral Mucosa: Moist Neck: Supple Chest: Symmetrical, No Deformity, No Tenderness Cardiovascular: Rhythm Regular, No Murmur Respiratory: Normal Breath Sounds, No Rales, No Rhonchi, No Wheezing Extremity: Normal ROM, Capillary Refill (less than 2 seconds ) Neurological/Psych: Oriented x3, Normal Speech, Normal Cognition ED Course And Treatment - Laboratory Results Result Diagrams: 04/19/18 10:17 04/19/18 10:17 Lab Interpretation: Normal (+ 10% bandemia) ECG: Interpreted By Me ECG Rhythm: Sinus Tachycardia ECG Interpretation: Abnormal Rate From EC O2 Sat by Pulse Oximetry: 95 (on RA) Pulse Ox Interpretation: Normal - Radiology CXR: Interpreted by Me CXR Interpretation: Yes: No Acute Disease Progress Note: Quell/Nix decon wash and after lotion in ED Decon room. Vanco, Bactrim Reevaluation Time: 11:11 Reassessment Condition: Improved - Physician Consult Information Outcome Of Conversation: 1115: dw Dr. Rocky Moreno, Medicine Delivery Architect- ok to Med/Surg Obs. contact isolation Medical Decision Making Medical Decision Making: skin lesions: scabies, h/o same, homeless, lives in longterm and day-longterm for homeless minimal pruritis is curious impetigo/folliculitis suspect superinfection or contagious longterm high risk for MRSA Bactrim PO started, Vanco Added WBC 7K, Bandemia 10% suspicious for emerging infection Well appearing. Homeless/Alcoholic/Schizo Consider CIWA protocol Disposition Doctor Will See Patient In The: Hospital Counseled Patient/Family Regarding: Studies Performed - Disposition Disposition: HOSPITALIZED Disposition Time: 11:18 Condition: GOOD - Clinical Impression Clinical Impression: Skin lesion, Schizoaffective disorder, Alcohol abuse - Scribe Statement The provider has reviewed the documentation as recorded by the Scribe (Karie Moreno) Provider Attestation: All medical record entries made by the Scribe were at my direction and personally dictated by me. I have reviewed the chart and agree that the record accurately reflects my personal performance of the history, physical exam, medical decision making, and the department course for this patient. I have also personally directed, reviewed, and agree with the discharge instructions and disposition.
--- NOTE | 2018-04-19 10:24 | RAD ---
Date of service: 04/19/2018 PROCEDURE: CHEST RADIOGRAPH, 1 VIEW HISTORY: adm COMPARISON: None available. FINDINGS: LUNGS: The lungs are well inflated and clear. PLEURA: No pneumothorax or pleural effusion. CARDIOVASCULAR: The heart is normal in size. No aortic atherosclerotic calcifications present. OSSEOUS STRUCTURES: Within normal limits for the patient's age. VISUALIZED UPPER ABDOMEN: Normal. OTHER FINDINGS: None. IMPRESSION: No active pulmonary disease.
[2018-04-19 10:25] LABS: PLATELET COUNT 172 K/uL (130-400)
[2018-04-19 10:35] LABS: ALB/GLOB RATIO 1.4 (1.0-2.1); ALBUMIN 4.2 g/dL (3.5-5.0); ALT/SGPT 37 U/L (21-72); AST/SGOT 29 U/L (17-59); BLOOD UREA NITROGEN 11 mg/dL (9-20); CALCIUM 8.6 mg/dl (8.6-10.4); GFR NON-AFRICAN AMERICAN > 60
[2018-04-19 10:52] LABS: BANDS 10 % (0-2); LYMPHOCYTE 25 % (20-40); MONOCYTE 14 % (0-10); NEUTROPHIL 46 % (50-75); REACTIVE LYMPHOCYTES 5 % (0-0); TOTAL CELLS COUNTED 100
[2018-04-19 10:53] LABS: ANISOCYTOSIS SLIGHT; PLATELET ESTIMATE NORMAL (NORMAL)
[2018-04-19] MEDS ORDERED: Piperacillin/Tazobact 3.375 gm 100 ML IV STA (11:20)
[2018-04-19] MEDS ORDERED: Sodium Chloride 0.9% 1,000 ML IV ONE (11:21)
[2018-04-19] MEDS ORDERED: Piperacillin/Tazobact 3.375 gm 100 ML IVPB ONE (11:27)
[2018-04-19] MEDS ORDERED: Sodium Chloride 0.9% 1,000 ML ONE (11:27)
[2018-04-19] MEDS: Folic Acid 1 MG, Thiamine 100 MG, Multivitamin (MVI) 10 ML in Dextrose 5% In Water 1,00... IV SCH (13:45)
[2018-04-19] MEDS: Piperacill/Tazo 2.25gm in Dex 2.25 GM/50 ML BAG IVPB SCH (19:00)
[2018-04-19] MEDS: Tmp-Smz 800 mg-160 mg DS Tab PO SCH (21:28)
--- NOTE | 2018-04-19 22:16 | CP.PCM.HP ---
Past Patient History - Infectious Disease Hx of Infectious Diseases: None - Tetanus Immunizations Tetanus Immunization: Unknown - Past Social History Smoking Status: Heavy Smoker > 10 Cigarettes Daily - CARDIAC Hx Cardia Arrhythmia: Yes Hx Hypertension: No - PULMONARY Hx Bronchitis: Yes - NEUROLOGICAL Hx Seizures: No - HEENT Hx HEENT Problems: No - RENAL Hx Chronic Kidney Disease: No - ENDOCRINE/METABOLIC Hx Endocrine Disorders: No - HEMATOLOGICAL/ONCOLOGICAL Hx Human Immunodeficiency Virus (HIV): No - INTEGUMENTARY Hx Dermatological Problems: No - MUSCULOSKELETAL/RHEUMATOLOGICAL Hx Musculoskeletal Disorders: No - GASTROINTESTINAL Hx Gastrointestinal Disorders: No - GENITOURINARY/GYNECOLOGICAL Hx Sexually Transmitted Disorders: No - PSYCHIATRIC Hx Anxiety: Yes Hx Bipolar Disorder: No (PT DENIES) Hx Depression: Yes Hx Schizophrenia: Yes Hx Substance Use: Yes - SURGICAL HISTORY Hx Surgeries: Yes Other/Comment: jaw surgery 1991 - ANESTHESIA Hx Anesthesia: Yes Hx Anesthesia Reactions: No Hx Malignant Hyperthermia: No Meds Allergies/Adverse Reactions: Allergies Allergy/AdvReac Type Severity Reaction Status Date / Time No Known Allergies Allergy Verified 04/19/18 11:28 Physical Exam - Constitutional Appears: Well - Head Exam Head Exam: ATRAUMATIC, NORMAL INSPECTION, NORMOCEPHALIC - Eye Exam Eye Exam: EOMI, Normal appearance, PERRL Pupil Exam: NORMAL ACCOMODATION, PERRL - ENT Exam ENT Exam: Mucous Membranes Moist, Normal Exam - Neck Exam Neck exam: Positive for: Normal Inspection - Respiratory Exam Respiratory Exam: Decreased Breath Sounds - Cardiovascular Exam Cardiovascular Exam: REGULAR RHYTHM, +S1, +S2 - GI/Abdominal Exam GI & Abdominal Exam: Diminished Bowel Sounds, Soft - Rectal Exam Rectal Exam: Deferred Results - Vital Signs Recent Vital Signs: Last Vital Signs Temp 99.7 F H 04/19/18 16:15 Pulse 98 H 04/19/18 16:15 Resp 20 04/19/18 16:15 BP 126/77 04/19/18 16:15 Pulse Ox 95 04/19/18 16:15 - Labs Result Diagrams: 04/19/18 10:17 04/19/18 10:17 Labs: Laboratory Results - last 24 hr 04/19/18 04/19/18 10:17 10:17 WBC 7.4 RBC 4.67 Hgb 14.7 Hct 42.6 MCV 91.1 MCH 31.5 H MCHC 34.6 RDW 14.9 H Plt Count 172 D MPV 7.6 Neut % (Auto) 59.5 Lymph % (Auto) 25.7 [place] % (Auto) 13.4 H Eos % (Auto) 0.1 Baso % (Auto) 1.3 Neut # (Auto) 4.4 Lymph # (Auto) 1.9 [place] # (Auto) 1.0 H Eos # (Auto) 0.0 Baso # (Auto) 0.1 Neutrophils % (Manual) 46 L Band Neutrophils % 10 H Lymphocytes % (Manual) 25 Reactive Lymphs % 5 H Monocytes % (Manual) 14 H Platelet Estimate Normal Anisocytosis (manual) Slight Sodium 134 Potassium 3.9 Chloride 99 Carbon Dioxide 24 Anion Gap 15 BUN 11 Creatinine 0.9 Est GFR ( Amer) > 60 Est GFR (Non-Af Amer) > 60 Random Glucose 110 Calcium 8.6 Total Bilirubin 0.4 AST 29 ALT 37 Alkaline Phosphatase 63 Total Protein 7.1 Albumin 4.2 Globulin 2.9 Albumin/Globulin Ratio 1.4
[2018-04-20] MEDS: Piperacill/Tazo 2.25gm in Dex 2.25 GM/50 ML BAG IVPB SCH ×4 (00:20→18:25)
[2018-04-20] MEDS: Tmp-Smz 800 mg-160 mg DS Tab PO SCH (09:33)
[2018-04-20] MEDS: Folic Acid 1 MG, Thiamine 100 MG, Multivitamin (MVI) 10 ML in Dextrose 5% In Water 1,00... IV SCH (09:35)
[2018-04-20] MEDS: Enoxaparin 40 mg Syringe SC SCH (13:32)
--- NOTE | 2018-04-20 13:39 | CP.PCM.CON ---
History of Present Illness - History of Present Illness History of Present Illness: 48 year old male presents to the ED for evaluation of painful itchy skin lesions to his face, chest and abdominal regions that have been worsening over the past 3 days. Patient states he lives in a homeless long-term and has a history of scabies x 2. Patient claims he drinks three drinks per day, states he has not had alcohol intake in the past two days. - Medical History PMH: Anxiety, Bronchitis, Cardia Arrhythmia, Depression, Schizophrenia Denies: Bipolar Disorder (PT DENIES), Diabetes, Hepatitis, HIV, HTN, Chronic Kidney Disease, Seizures, Sexually Transmitted Disease Surgical History: No Surg Hx Review of Systems - Review of Systems All systems: reviewed and no additional remarkable complaints except - Constitutional Constitutional: As Per HPI - EENT Eyes: absent: As Per HPI, Blind Spots, Blurred Vision, Change in Vision, Decreased Night Vision, Diplopia, Discharge, Dry Eye, Exophthalmos, Floaters, Irritation, Itchy Eyes, Loss of Peripheral Vision, Pain, Photophobia, Requires Corrective Lenses, Sees Flashes, Spots in Vision, Tunnel Vision, Other Visual Disturbances, Loss of Vision, Other Ears: absent: As Per HPI, Decreased Hearing, Ear Discharge, Ear Pain, Tinnitus, Abnormal Hearing, Disequilibrium, Dizziness, Other Nose/Mouth/Throat: absent: As Per HPI, Epistaxis, Nasal Congestion, Nasal Discharge, Nasal Obstruction, Nasal Trauma, Nose Pain, Post Nasal Drip, Sinus Pain, Sinus Pressure, Bleeding Gums, Change in Voice, Dental Pain, Dry Mouth, D ysphagia, Halitosis, Hoarsness, Lip Swelling, Mouth Lesions, Mouth Pain, Odynophagia, Sore Throat, Throat Swelling, Tongue Swelling, Facial Pain, Neck Pain, Neck Mass, Other - Cardiovascular Cardiovascular: absent: As Per HPI, Acrocyanosis, Chest Pain, Chest Pain at Rest, Chest Pain with Activity, Claudication, Diaphoresis, Dyspnea, Dyspnea on Exertion, Edema, Irregular Heart Rhythm, Pain Radiating to Arm/Neck/Jaw, Leg Edema, Leg Ulcers, Lightheadedness, Orthopnea, Palpitations, Paroxysmal Nocturnal Dyspnea, Pedal Edema, Radiating Pain, Rapid Heart Rate, Slow Heart Rate, Syncope, Other - Respiratory Respiratory: absent: As Per HPI, Cough, Dyspnea, Hemoptysis, Dyspnea on Exertion, Wheezing, Snoring, Stridor, Pain on Inspiration, Chest Congestion, Excessive Mucous Production, Change in Mucous Color, Pain with Coughing, Other - Gastrointestinal Gastrointestinal: absent: As Per HPI, Abdominal Pain, Belching, Bloating, Change in Bowel Habits, Change in Stool Character, Coffee Ground Emesis, Constipation, Cramping, Diarrhea, Dyspepsia, Dysphagia, Early Satiety, Excessive Flatus, Fecal Incontinence, Heartburn, Hematemesis, Hematochezia, Loose Stools, Melena, Nausea, Odynophagia, Temesmus, Vomiting, Other - Genitourinary Genitourinary: absent: As Per HPI, Change in Urinary Stream, Difficulty Urinating, Dysuria, Flank Pain, Hematuria, Pyuria, Nocturia, Urinary Incontinence, Urinary Frequency, Urinary Hesitance, Urinary Urgency, Voiding Freq/Small Amts, Freq UTI, Hx Renal/Bladder Calculi, Hx /Renal Surgery, Bladder Distension, Other - Musculoskeletal Musculoskeletal: absent: As Per HPI, Abnormal Gait, Arthralgias, Atrophy, Back Pain, Deformity, Joint Swelling, Limited Range of Motion, Loss of Height, Muscle Cramps, Muscle Weakness, Myalgias, Neck Pain, Numbness, Radiating Pain into Limb, Stiffness, Tingling, Other - Integumentary Integumentary: As Per HPI - Neurological Neurological: absent: As Per HPI, Abnormal Gait, Abnormal Hearing, Abnormal Movements, Abnormal Speech, Behavioral Changes, Burning Sensations, Confusion, Convulsions, Disequilibrium, Dizziness, Numbness, Focal Weakness, Frequent Fa lls, Headaches, Lack of Coordination, Loss of Vision, Memory Loss, Paresthesias, Radicular Pain, Restless Legs, Sensory Deficit, Syncope, Tingling, Tremor, Vertigo, Weakness, Other Visual Disturbances, Other - Psychiatric Psychiatric: absent: As Per HPI, Abnormal Sleep Pattern, Anhedonia, Anxiety, Auditory Hallucinations, Behavioral Changes, Change in Appetite, Change in Libido, Confusion, Depression, Difficulty Concentrating, Hallucinations, Homicidal Ideation, Hopelessness, Irritability, Memory Loss, Mood Swings, Panic Attacks, Paranoia, Suicidal Ideation, Visual Hallucinations, Tactile Hallucinations, Other - Endocrine Endocrine: absent: As Per HPI, Change in Body Appearance, Change in Libido, Cold Intolorance, Deepening of Voice, Excessive Sweating, Fatigue, Flushing, Heat Intolorance, Increase in Ring/Shoe/Hat Size, Palpitations, Polydipsia, Polyphagia, Polyuria, Other - Hematologic/Lymphatic Hematologic: absent: As Per HPI, Easy Bleeding, Easy Bruising, Lymphadenopathy, Other Past Patient History - Infectious Disease Hx of Infectious Diseases: None - Tetanus Immunizations Tetanus Immunization: Unknown - Past Social History Smoking Status: Heavy Smoker > 10 Cigarettes Daily - CARDIAC Hx Cardia Arrhythmia: Yes Hx Hypertension: No - PULMONARY Hx Bronchitis: Yes - NEUROLOGICAL Hx Seizures: No - HEENT Hx HEENT Problems: No - RENAL Hx Chronic Kidney Disease: No - ENDOCRINE/METABOLIC Hx Endocrine Disorders: No - HEMATOLOGICAL/ONCOLOGICAL Hx Human Immunodeficiency Virus (HIV): No - INTEGUMENTARY Hx Dermatological Problems: No - MUSCULOSKELETAL/RHEUMATOLOGICAL Hx Musculoskeletal Disorders: No - GASTROINTESTINAL Hx Gastrointestinal Disorders: No - GENITOURINARY/GYNECOLOGICAL Hx Sexually Transmitted Disorders: No - PSYCHIATRIC Hx Anxiety: Yes Hx Bipolar Disorder: No (PT DENIES) Hx Depression: Yes Hx Schizophrenia: Yes Hx Substance Use: Yes - SURGICAL HISTORY Hx Surgeries: Yes Other/Comment: jaw surgery 1991 - ANESTHESIA Hx Anesthesia: Yes Hx Anesthesia Reactions: No Hx Malignant Hyperthermia: No Meds Allergies/Adverse Reactions: Allergies Allergy/AdvReac Type Severity Reaction Status Date / Time No Known Allergies Allergy Verified 04/19/18 11:28 - Medications Medications: Current Medications Bupropion HCl (Wellbutrin) 75 mg PO DAILY [facility] Last Admin: 04/20/18 09:34 Dose: 75 mg Enoxaparin Sodium (Lovenox) 40 mg SC DAILY [facility] Last Admin: 04/20/18 13:32 Dose: 40 mg Folic Acid 1 mg/ Thiamine HCl 100 mg/ Multivitamins/Vitamin C 10 ml/ Dextrose 1,011.2 mls @ 75 mls/hr IV DAILY [facility] Last Admin: 04/20/18 09:35 Dose: 75 mls/hr Piperacillin Sod/Tazobactam Sod (Zosyn 2.25 Gm Iv Premix) 2.25 gm in 50 mls @ 100 mls/hr IVPB Q6H [facility]; Protocol Last Admin: 04/20/18 11:28 Dose: 100 mls/hr Quetiapine Fumarate (Seroquel) 200 mg PO DAILY [facility] Last Admin: 04/20/18 09:44 Dose: 200 mg Trimethoprim/Sulfamethoxazole (Bactrim Ds Tab) 1 tab PO Q12 [facility]; Protocol Last Admin: 04/20/18 09:33 Dose: 1 tab Physical Exam - Constitutional Appears: Non-toxic, Chronically Ill - Head Exam Head Exam: NORMOCEPHALIC - Eye Exam Eye Exam: absent: Scleral icterus - ENT Exam ENT Exam: Mucous Membranes Dry - Neck Exam Neck exam: Negative for: Lymphadenopathy - Respiratory Exam Respiratory Exam: Decreased Breath Sounds, Clear to Auscultation Bilateral - Cardiovascular Exam Cardiovascular Exam: REGULAR RHYTHM, +S1, +S2 - GI/Abdominal Exam GI & Abdominal Exam: Diminished Bowel Sounds, Soft. absent: Tenderness - Rectal Exam Rectal Exam: Deferred - Exam Exam: NORMAL INSPECTION - Extremities Exam Extremities exam: Negative for: calf tenderness, pedal edema - Back Exam Back exam: absent: CVA tenderness (L), CVA tenderness (R) - Neurological Exam Neurological exam: Alert, CN II-XII Intact, Oriented x3, Reflexes Normal - Psychiatric Exam Psychiatric exam: Depressed - Skin Skin Exam: Erythema Additional comments: multiple maculo papular and vesicular lesions at various stages with surrounding erythema of skin on fase arms legs and trunk Results - Vital Signs Recent Vital Signs: Last Vital Signs Temp 97.9 F 04/20/18 08:00 Pulse 96 H 04/20/18 08:00 Resp 20 04/20/18 08:00 BP 132/84 04/20/18 08:00 Pulse Ox 95 04/20/18 12:00 - Labs Result Diagrams: 04/19/18 10:17 04/19/18 10:17 Assessment & Plan (1) Alcohol abuse Status: Acute (2) Schizo-affective psychosis Status: Acute (3) Skin lesion Status: Acute - Assessment and Plan (Free Text) Assessment: r/o varicella vs diffuse folliculitis ( MRSA ) hx scabies in past add Famvir IV Vanco maintain isolation
[2018-04-20] MEDS ORDERED: Vancomycin 1 gm/NS 200 ml 1 GM/200 ML BAG IVPB SCH (15:00)
[2018-04-20] MEDS: Vancomycin 1 gm/NS 200 ml 1 GM/200 ML BAG IVPB SCH (18:24)
--- NOTE | 2018-04-20 19:28 | CP.PCM.PN ---
Subjective - Date & Time of Evaluation Date of Evaluation: 04/20/18 Time of Evaluation: 07:45 - Subjective Subjective: clinically same Objective - Vital Signs/Intake and Output Vital Signs (last 24 hours): Temp Pulse Resp BP Pulse Ox 98.1 F 86 20 108/72 95 04/20/18 16:00 04/20/18 16:00 04/20/18 16:00 04/20/18 16:00 04/20/18 16:00 Intake and Output: 04/20/18 04/21/18 18:59 06:59 Intake Total 300 Balance 300 - Medications Medications: Current Medications Bupropion HCl (Wellbutrin) 75 mg PO DAILY [facility] Last Admin: 04/20/18 09:34 Dose: 75 mg Enoxaparin Sodium (Lovenox) 40 mg SC DAILY [facility] Last Admin: 04/20/18 13:32 Dose: 40 mg Famciclovir (Famvir) 500 mg PO TID [facility]; Protocol Last Admin: 04/20/18 18:50 Dose: 500 mg Folic Acid 1 mg/ Thiamine HCl 100 mg/ Multivitamins/Vitamin C 10 ml/ Dextrose 1,011.2 mls @ 75 mls/hr IV DAILY [facility] Last Admin: 04/20/18 09:35 Dose: 75 mls/hr Piperacillin Sod/Tazobactam Sod (Zosyn 2.25 Gm Iv Premix) 2.25 gm in 50 mls @ 100 mls/hr IVPB Q6H [facility]; Protocol Last Admin: 04/20/18 18:25 Dose: 100 mls/hr Vancomycin/Sodium Chloride (Vancomycin 1 Gm/Ns 200 Ml) 1 gm in 200 mls @ 133.333 mls/hr IVPB Q12H [facility]; Protocol Last Admin: 04/20/18 18:24 Dose: 133.333 mls/hr Quetiapine Fumarate (Seroquel) 200 mg PO DAILY [facility] Last Admin: 04/20/18 09:44 Dose: 200 mg - Labs Labs: 04/19/18 10:17 04/19/18 10:17
[2018-04-21] MEDS: Piperacill/Tazo 2.25gm in Dex 2.25 GM/50 ML BAG IVPB SCH ×4 (00:33→17:38)
[2018-04-21] MEDS: Vancomycin 1 gm/NS 200 ml 1 GM/200 ML BAG IVPB SCH ×2 (03:15→14:30)
[2018-04-21 08:01] LABS: HEPATITIS B SURFACE AG Negative (NEGATIVE)
[2018-04-21 08:07] LABS: HEPATITIS A IGM NEGATIVE (NEGATIVE); HEPATITIS B CORE AB NEGATIVE (NEGATIVE)
[2018-04-21 08:18] LABS: HEPATITIS C ANTIBODY NEGATIVE (NEGATIVE)
[2018-04-21] MEDS: Folic Acid 1 MG, Thiamine 100 MG, Multivitamin (MVI) 10 ML in Dextrose 5% In Water 1,00... IV SCH (09:49)
[2018-04-21] MEDS: Enoxaparin 40 mg Syringe SC SCH (09:50)
--- NOTE | 2018-04-21 12:13 | CP.PCM.PN ---
Subjective - Date & Time of Evaluation Date of Evaluation: 04/21/18 Time of Evaluation: 07:45 - Subjective Subjective: clinically same Objective - Vital Signs/Intake and Output Vital Signs (last 24 hours): Temp Pulse Resp BP Pulse Ox 97.8 F 86 20 129/81 96 04/21/18 08:07 04/21/18 08:07 04/21/18 08:07 04/21/18 08:07 04/21/18 08:07 - Medications Medications: Current Medications Bupropion HCl (Wellbutrin) 75 mg PO DAILY [facility] Last Admin: 04/21/18 09:51 Dose: 75 mg Enoxaparin Sodium (Lovenox) 40 mg SC DAILY [facility] Last Admin: 04/21/18 09:50 Dose: 40 mg Famciclovir (Famvir) 500 mg PO TID [facility]; Protocol Last Admin: 04/21/18 09:50 Dose: 500 mg Folic Acid 1 mg/ Thiamine HCl 100 mg/ Multivitamins/Vitamin C 10 ml/ Dextrose 1,011.2 mls @ 75 mls/hr IV DAILY [facility] Last Admin: 04/21/18 09:49 Dose: 75 mls/hr Piperacillin Sod/Tazobactam Sod (Zosyn 2.25 Gm Iv Premix) 2.25 gm in 50 mls @ 100 mls/hr IVPB Q6H [facility]; Protocol Last Admin: 04/21/18 05:47 Dose: 100 mls/hr Vancomycin/Sodium Chloride (Vancomycin 1 Gm/Ns 200 Ml) 1 gm in 200 mls @ 133.333 mls/hr IVPB Q12H [facility]; Protocol Last Admin: 04/21/18 03:15 Dose: 133.333 mls/hr Quetiapine Fumarate (Seroquel) 200 mg PO DAILY [facility] Last Admin: 04/21/18 09:50 Dose: 200 mg - Labs Labs: 04/19/18 10:17 04/19/18 10:17
--- NOTE | 2018-04-21 13:33 | CARD ---
APPROVED REPORT Date of service: 04/19/2018 EKG Measurement Heart [id number] <Conclusion> Sinus tachycardia Otherwise normal ECG
--- NOTE | 2018-04-21 15:03 | CP.PCM.PN ---
Subjective - Date & Time of Evaluation Date of Evaluation: 04/21/18 Time of Evaluation: 08:00 - Subjective Subjective: afeb rash persists Objective - Vital Signs/Intake and Output Vital Signs (last 24 hours): Temp Pulse Resp BP Pulse Ox 97.8 F 86 20 129/81 96 04/21/18 08:07 04/21/18 08:07 04/21/18 08:07 04/21/18 08:07 04/21/18 12:00 - Medications Medications: Current Medications Bupropion HCl (Wellbutrin) 75 mg PO DAILY [facility] Last Admin: 04/21/18 09:51 Dose: 75 mg Enoxaparin Sodium (Lovenox) 40 mg SC DAILY [facility] Last Admin: 04/21/18 09:50 Dose: 40 mg Famciclovir (Famvir) 500 mg PO TID [facility]; Protocol Last Admin: 04/21/18 13:27 Dose: 500 mg Folic Acid 1 mg/ Thiamine HCl 100 mg/ Multivitamins/Vitamin C 10 ml/ Dextrose 1,011.2 mls @ 75 mls/hr IV DAILY [facility] Last Admin: 04/21/18 09:49 Dose: 75 mls/hr Piperacillin Sod/Tazobactam Sod (Zosyn 2.25 Gm Iv Premix) 2.25 gm in 50 mls @ 100 mls/hr IVPB Q6H [facility]; Protocol Last Admin: 04/21/18 12:30 Dose: 100 mls/hr Vancomycin/Sodium Chloride (Vancomycin 1 Gm/Ns 200 Ml) 1 gm in 200 mls @ 133.333 mls/hr IVPB Q12H [facility]; Protocol Last Admin: 04/21/18 03:15 Dose: 133.333 mls/hr Quetiapine Fumarate (Seroquel) 200 mg PO DAILY [facility] Last Admin: 04/21/18 09:50 Dose: 200 mg - Labs Labs: 04/19/18 10:17 04/19/18 10:17 - Constitutional Appears: Well - Head Exam Head Exam: ATRAUMATIC, NORMAL INSPECTION, NORMOCEPHALIC - Eye Exam Eye Exam: EOMI, Normal appearance, PERRL Pupil Exam: NORMAL ACCOMODATION, PERRL - ENT Exam ENT Exam: Mucous Membranes Moist, Normal Exam - Neck Exam Neck Exam: Full ROM, Normal Inspection. absent: Lymphadenopathy - Respiratory Exam Respiratory Exam: Clear to Ausculation Bilateral, NORMAL BREATHING PATTERN - Cardiovascular Exam Cardiovascular Exam: REGULAR RHYTHM, +S1, +S2. absent: Murmur - GI/Abdominal Exam GI & Abdominal Exam: Soft, Normal Bowel Sounds. absent: Tenderness - Rectal Exam Rectal Exam: NORMAL INSPECTION - Exam Exam: Circumcision, NORMAL INSPECTION - Extremities Exam Extremities Exam: Full ROM, Normal Capillary Refill, Normal Inspection. absent: Joint Swelling, Pedal Edema - Back Exam Back Exam: NORMAL INSPECTION - Neurological Exam Neurological Exam: Alert, Awake, CN II-XII Intact, Normal Gait, Oriented x3 - Psychiatric Exam Psychiatric exam: Normal Affect, Normal Mood - Skin Skin Exam: Dry, Erythema, Vesicles, Warm. absent: Intact, Normal Color Assessment and Plan (1) Alcohol abuse Status: Acute (2) Schizo-affective psychosis Status: Acute (3) Skin lesion Status: Acute - Assessment and Plan (Free Text) Assessment: cont rx for varicella await serologies IV rx for folliculitis await cultures
[2018-04-22] MEDS: Piperacill/Tazo 2.25gm in Dex 2.25 GM/50 ML BAG IVPB SCH ×5 (00:02→23:59)
[2018-04-22] MEDS: Vancomycin 1 gm/NS 200 ml 1 GM/200 ML BAG IVPB SCH ×3 (04:00→22:11)
[2018-04-22 07:02] LABS: BASO # 0.1 K/uL (0.0-0.2); EOS # 0.2 K/uL (0.0-0.7); EOS % 2.1 % (0.0-4.0); HEMOGLOBIN 14.2 g/dL (12.0-18.0); LYMPH # 2.7 K/uL (1.0-4.3); LYMPH % 35.6 % (20.0-40.0); MEAN CELL VOLUME 90.7 fL (80.0-94.0); MEAN CORPUSCULAR HEMOGLOBIN 31.4 pg (27.0-31.0); MEAN CORPUSCULAR HGB CONC 34.6 g/dL (33.0-37.0); MEAN PLATELET VOLUME 7.7 fL (7.2-11.7); MONO # 0.7 K/uL (0.0-0.8); MONO % 8.9 % (0.0-10.0); NEUT % 52.4 % (50.0-75.0); NRBC % 0.1 % (0.0-2.0); RBC 4.53 Mil/uL (4.40-5.90); RED CELL DISTRIBUTION WIDTH 15.3 % (11.5-14.5); WHITE BLOOD COUNT 7.7 K/uL (4.8-10.8)
[2018-04-22 07:27] LABS: BLOOD UREA NITROGEN 9 mg/dL (9-20); CALCIUM 8.4 mg/dl (8.6-10.4); GFR NON-AFRICAN AMERICAN > 60
[2018-04-22] MEDS: Enoxaparin 40 mg Syringe SC SCH (10:45)
[2018-04-22] MEDS: Folic Acid 1 MG, Thiamine 100 MG, Multivitamin (MVI) 10 ML in Dextrose 5% In Water 1,00... IV SCH (10:45)
--- NOTE | 2018-04-22 15:48 | CP.PCM.PN ---
Subjective - Date & Time of Evaluation Date of Evaluation: 04/22/18 Time of Evaluation: 07:45 - Subjective Subjective: clinically same Objective - Vital Signs/Intake and Output Vital Signs (last 24 hours): Temp Pulse Resp BP Pulse Ox 97.8 F 83 20 128/79 95 04/22/18 08:26 04/22/18 08:26 04/22/18 08:26 04/22/18 08:26 04/22/18 08:26 Intake and Output: 04/22/18 04/22/18 06:59 18:59 Intake Total 1612 1100 Balance 1612 1100 - Medications Medications: Current Medications Bupropion HCl (Wellbutrin) 75 mg PO DAILY [facility] Last Admin: 04/22/18 10:44 Dose: 75 mg Enoxaparin Sodium (Lovenox) 40 mg SC DAILY [facility] Last Admin: 04/22/18 10:45 Dose: Not Given Famciclovir (Famvir) 500 mg PO TID [facility]; Protocol Last Admin: 04/22/18 13:21 Dose: 500 mg Piperacillin Sod/Tazobactam Sod (Zosyn 2.25 Gm Iv Premix) 2.25 gm in 50 mls @ 100 mls/hr IVPB Q6H [facility]; Protocol Last Admin: 04/22/18 12:30 Dose: 100 mls/hr Vancomycin/Sodium Chloride (Vancomycin 1 Gm/Ns 200 Ml) 1 gm in 200 mls @ 133.3 33 mls/hr IVPB Q12H [facility]; Protocol Stop: 04/26/18 09:01 Last Admin: 04/22/18 08:23 Dose: 133.333 mls/hr Influenza Virus Vaccine (Fluzone Quad [id number]) 60 mcg IM .ONCE ONE Stop: 04/24/18 10:01 Quetiapine Fumarate (Seroquel) 200 mg PO DAILY [facility] Last Admin: 04/22/18 10:44 Dose: 200 mg - Labs Labs: 04/22/18 06:44 04/22/18 06:44
[2018-04-23] MEDS: Piperacill/Tazo 2.25gm in Dex 2.25 GM/50 ML BAG IVPB SCH (05:53)
[2018-04-23] MEDS: Vancomycin 1 gm/NS 200 ml 1 GM/200 ML BAG IVPB SCH ×2 (08:44→20:31)
[2018-04-23] MEDS: Enoxaparin 40 mg Syringe SC SCH (10:48)
--- NOTE | 2018-04-23 15:21 | CP.PCM.PN ---
Subjective - Date & Time of Evaluation Date of Evaluation: 04/23/18 Time of Evaluation: 09:00 - Subjective Subjective: rash less intense iv and po rx in progress Objective - Vital Signs/Intake and Output Vital Signs (last 24 hours): Temp Pulse Resp BP Pulse Ox 97.9 F 77 20 137/82 95 04/23/18 08:16 04/23/18 08:16 04/23/18 08:16 04/23/18 08:16 04/23/18 08:16 Intake and Output: 04/23/18 04/23/18 06:59 18:59 Intake Total 800 1400 Output Total 0 Balance 800 1400 - Medications Medications: Current Medications Bupropion HCl (Wellbutrin) 75 mg PO DAILY [facility] Last Admin: 04/23/18 10:09 Dose: 75 mg Enoxaparin Sodium (Lovenox) 40 mg SC DAILY [facility] Last Admin: 04/23/18 10:48 Dose: Not Given Famciclovir (Famvir) 500 mg PO TID [facility]; Protocol Last Admin: 04/23/18 14:14 Dose: 500 mg Piperacillin Sod/Tazobactam Sod (Zosyn 2.25 Gm Iv Premix) 2.25 gm in 50 mls @ 100 mls/hr IVPB Q6H [facility]; Protocol Last Admin: 04/23/18 05:53 Dose: 100 mls/hr Vancomycin/Sodium Chloride (Vancomycin 1 Gm/Ns 200 Ml) 1 gm in 200 mls @ 133.333 mls/hr IVPB Q12H [facility]; Protocol Stop: 04/26/18 09:01 Last Admin: 04/23/18 08:44 Dose: 133.333 mls/hr Influenza Virus Vaccine (Fluzone Quad [id number]) 60 mcg IM .ONCE ONE Stop: 04/24/18 10:01 Quetiapine Fumarate (Seroquel) 200 mg PO DAILY [facility] Last Admin: 04/23/18 10:08 Dose: 200 mg - Labs Labs: 04/22/18 06:44 04/22/18 06:44 - Constitutional Appears: Non-toxic, Chronically Ill - Head Exam Head Exam: NORMOCEPHALIC - Eye Exam Eye Exam: absent: Scleral icterus - ENT Exam ENT Exam: Normal External Ear Exam - Neck Exam Neck Exam: absent: Lymphadenopathy - Respiratory Exam Respiratory Exam: Decreased Breath Sounds - Cardiovascular Exam Cardiovascular Exam: REGULAR RHYTHM - GI/Abdominal Exam GI & Abdominal Exam: Distended, Soft - Rectal Exam Rectal Exam: Deferred - Exam Exam: NORMAL INSPECTION Assessment and Plan (1) Alcohol abuse Status: Acute (2) Schizo-affective psychosis Status: Acute (3) Skin lesion Status: Acute - Assessment and Plan (Free Text) Plan: cont iv and PO rx
--- NOTE | 2018-04-23 15:22 | CP.PCM.PN ---
Subjective - Date & Time of Evaluation Date of Evaluation: 04/23/18 Time of Evaluation: 07:45 - Subjective Subjective: clinically same Objective - Vital Signs/Intake and Output Vital Signs (last 24 hours): Temp Pulse Resp BP Pulse Ox 97.9 F 77 20 137/82 95 04/23/18 08:16 04/23/18 08:16 04/23/18 08:16 04/23/18 08:16 04/23/18 08:16 Intake and Output: 04/23/18 04/23/18 06:59 18:59 Intake Total 800 1400 Output Total 0 Balance 800 1400 - Medications Medications: Current Medications Bupropion HCl (Wellbutrin) 75 mg PO DAILY [facility] Last Admin: 04/23/18 10:09 Dose: 75 mg Enoxaparin Sodium (Lovenox) 40 mg SC DAILY [facility] Last Admin: 04/23/18 10:48 Dose: Not Given Famciclovir (Famvir) 500 mg PO TID [facility]; Protocol Last Admin: 04/23/18 14:14 Dose: 500 mg Piperacillin Sod/Tazobactam Sod (Zosyn 2.25 Gm Iv Premix) 2.25 gm in 50 mls @ 100 mls/hr IVPB Q6H [facility]; Protocol Last Admin: 04/23/18 05:53 Dose: 100 mls/hr Vancomycin/Sodium Chloride (Vancomycin 1 Gm/Ns 200 Ml) 1 gm in 200 mls @ 133.333 mls/hr IVPB Q12H [facility]; Protocol Stop: 04/26/18 09:01 Last Admin: 04/23/18 08:44 Dose: 133.333 mls/hr Influenza Virus Vaccine (Fluzone Quad 8086-5016) 60 mcg IM .ONCE ONE Stop: 04/24/18 10:01 Quetiapine Fumarate (Seroquel) 200 mg PO DAILY [facility] Last Admin: 04/23/18 10:08 Dose: 200 mg - Labs Labs: 04/22/18 06:44 04/22/18 06:44
[2018-04-24] MEDS: Vancomycin 1 gm/NS 200 ml 1 GM/200 ML BAG IVPB SCH ×2 (09:55→21:42)
[2018-04-24] MEDS ORDERED: Influenza Vaccine 60 MCG/0.5 ML SYR (3 yr & up) IM ONE (10:00)
[2018-04-24] MEDS: Enoxaparin 40 mg Syringe SC SCH ×2 (10:04→10:24)
[2018-04-24 12:44] VITALS: RESP 20
--- NOTE | 2018-04-24 13:44 | CP.PCM.PN ---
Subjective - Date & Time of Evaluation Date of Evaluation: 04/24/18 Time of Evaluation: 07:45 - Subjective Subjective: clinically same Objective - Vital Signs/Intake and Output Vital Signs (last 24 hours): Temp Pulse Resp BP Pulse Ox 97.5 F L 80 20 137/95 H 95 04/24/18 07:00 04/24/18 07:00 04/24/18 07:00 04/24/18 07:00 04/24/18 07:00 Intake and Output: 04/24/18 04/24/18 06:59 18:59 Intake Total 350 Balance 350 - Medications Medications: Current Medications Bupropion HCl (Wellbutrin) 75 mg PO DAILY [facility] Last Admin: 04/24/18 09:56 Dose: 75 mg Enoxaparin Sodium (Lovenox) 40 mg SC DAILY [facility] Last Admin: 04/24/18 10:24 Dose: Not Given Famciclovir (Famvir) 500 mg PO TID [facility]; Protocol Last Admin: 04/24/18 10:00 Dose: 500 mg Vancomycin/Sodium Chloride (Vancomycin 1 Gm/Ns 200 Ml) 1 gm in 200 mls @ 133.333 mls/hr IVPB Q12H [facility]; Protocol Stop: 04/26/18 09:01 Last Admin: 04/24/18 09:55 Dose: 133.333 mls/hr Quetiapine Fumarate (Seroquel) 200 mg PO DAILY [facility] Last Admin: 04/24/18 09:56 Dose: 200 mg - Labs Labs: 04/22/18 06:44 04/22/18 06:44
--- NOTE | 2018-04-24 16:36 | CP.PCM.PN ---
Subjective - Date & Time of Evaluation Date of Evaluation: 04/24/18 Time of Evaluation: 07:00 - Subjective Subjective: afebrile alert nad rash less Objective - Vital Signs/Intake and Output Vital Signs (last 24 hours): Temp Pulse Resp BP Pulse Ox 97.5 F L 80 20 137/95 H 95 04/24/18 07:00 04/24/18 07:00 04/24/18 07:00 04/24/18 07:00 04/24/18 07:00 Intake and Output: 04/24/18 04/24/18 06:59 18:59 Intake Total 350 200 Balance 350 200 - Medications Medications: Current Medications Bupropion HCl (Wellbutrin) 75 mg PO DAILY [facility] Last Admin: 04/24/18 09:56 Dose: 75 mg Enoxaparin Sodium (Lovenox) 40 mg SC DAILY [facility] Last Admin: 04/24/18 10:24 Dose: Not Given Famciclovir (Famvir) 500 mg PO TID [facility]; Protocol Last Admin: 04/24/18 14:30 Dose: 500 mg Vancomycin/Sodium Chloride (Vancomycin 1 Gm/Ns 200 Ml) 1 gm in 200 mls @ 133.333 mls/hr IVPB Q12H [facility]; Protocol Stop: 04/26/18 09:01 Last Admin: 04/24/18 09:55 Dose: 133.333 mls/hr Quetiapine Fumarate (Seroquel) 200 mg PO DAILY [facility] Last Admin: 04/24/18 09:56 Dose: 200 mg - Labs Labs: 04/22/18 06:44 04/22/18 06:44 - Constitutional Appears: Non-toxic, Chronically Ill - Head Exam Head Exam: NORMOCEPHALIC - Eye Exam Eye Exam: absent: Scleral icterus - ENT Exam ENT Exam: Mucous Membranes Dry - Neck Exam Neck Exam: absent: Lymphadenopathy - Respiratory Exam Respiratory Exam: Decreased Breath Sounds - Cardiovascular Exam Cardiovascular Exam: REGULAR RHYTHM - GI/Abdominal Exam GI & Abdominal Exam: Distended - Rectal Exam Rectal Exam: Deferred - Exam Exam: NORMAL INSPECTION - Extremities Exam Extremities Exam: absent: Pedal Edema - Back Exam Back Exam: absent: CVA tenderness (L), CVA tenderness (R) - Neurological Exam Neurological Exam: Alert, Awake, Oriented x3 - Psychiatric Exam Psychiatric exam: Normal Mood - Skin Skin Exam: Dry, Rash, Vesicles Assessment and Plan (1) Alcohol abuse Status: Acute (2) Schizo-affective psychosis Status: Acute (3) Skin lesion Status: Acute - Assessment and Plan (Free Text) Assessment: rash less cellulitis less rx as varicella with cellulitis
[2018-04-25] MEDS: Vancomycin 1 gm/NS 200 ml 1 GM/200 ML BAG IVPB SCH ×2 (08:26→20:13)
[2018-04-25] MEDS: Enoxaparin 40 mg Syringe SC SCH (10:18)
--- NOTE | 2018-04-25 16:51 | CP.PCM.PN ---
Subjective - Date & Time of Evaluation Date of Evaluation: 04/25/18 Time of Evaluation: 08:00 - Subjective Subjective: rash less lesions slowly drying Objective - Vital Signs/Intake and Output Vital Signs (last 24 hours): Temp Pulse Resp BP Pulse Ox 98.1 F 91 H 20 142/90 95 04/25/18 16:00 04/25/18 16:00 04/25/18 16:00 04/25/18 16:00 04/25/18 16:00 Intake and Output: 04/25/18 04/25/18 06:59 18:59 Intake Total 240 200 Balance 240 200 - Medications Medications: Current Medications Bupropion HCl (Wellbutrin) 75 mg PO DAILY [facility] Last Admin: 04/25/18 10:18 Dose: 75 mg Enoxaparin Sodium (Lovenox) 40 mg SC DAILY [facility] Last Admin: 04/25/18 10:18 Dose: 40 mg Famciclovir (Famvir) 500 mg PO TID [facility]; Protocol Last Admin: 04/25/18 13:10 Dose: 500 mg Vancomycin/Sodium Chloride (Vancomycin 1 Gm/Ns 200 Ml) 1 gm in 200 mls @ 133.333 mls/hr IVPB Q12H [facility]; Protocol Stop: 04/26/18 09:01 Last Admin: 04/25/18 08:26 Dose: 133.333 mls/hr Quetiapine Fumarate (Seroquel) 200 mg PO DAILY [facility] Last Admin: 04/25/18 10:17 Dose: 200 mg - Labs Labs: 04/22/18 06:44 04/22/18 06:44 - Constitutional Appears: Non-toxic, Chronically Ill - Head Exam Head Exam: NORMOCEPHALIC - Eye Exam Eye Exam: absent: Scleral icterus - ENT Exam ENT Exam: Mucous Membranes Dry - Neck Exam Neck Exam: absent: Lymphadenopathy - Respiratory Exam Respiratory Exam: Decreased Breath Sounds - Cardiovascular Exam Cardiovascular Exam: REGULAR RHYTHM - GI/Abdominal Exam GI & Abdominal Exam: Distended, Soft - Rectal Exam Rectal Exam: Deferred - Exam Exam: NORMAL INSPECTION - Extremities Exam Extremities Exam: absent: Pedal Edema - Back Exam Back Exam: absent: CVA tenderness (L), CVA tenderness (R) - Neurological Exam Neurological Exam: Alert, Awake, Oriented x3 - Psychiatric Exam Psychiatric exam: Normal Mood - Skin Skin Exam: Vesicles Assessment and Plan (1) Alcohol abuse Status: Acute (2) Schizo-affective psychosis Status: Acute (3) Skin lesion Status: Acute - Assessment and Plan (Free Text) Assessment: Varicella in an adult cont famvir
--- NOTE | 2018-04-25 21:10 | CP.PCM.PN ---
Subjective - Date & Time of Evaluation Date of Evaluation: 04/25/18 Time of Evaluation: 07:30 - Subjective Subjective: clinically same Objective - Vital Signs/Intake and Output Vital Signs (last 24 hours): Temp Pulse Resp BP Pulse Ox 98.1 F 91 H 20 142/90 95 04/25/18 16:00 04/25/18 16:00 04/25/18 16:00 04/25/18 16:00 04/25/18 16:00 Intake and Output: 04/25/18 04/26/18 18:59 06:59 Intake Total 200 Balance 200 - Medications Medications: Current Medications Bupropion HCl (Wellbutrin) 75 mg PO DAILY [facility] Last Admin: 04/25/18 10:18 Dose: 75 mg Enoxaparin Sodium (Lovenox) 40 mg SC DAILY [facility] Last Admin: 04/25/18 10:18 Dose: 40 mg Famciclovir (Famvir) 500 mg PO TID [facility]; Protocol Last Admin: 04/25/18 17:33 Dose: 500 mg Vancomycin/Sodium Chloride (Vancomycin 1 Gm/Ns 200 Ml) 1 gm in 200 mls @ 133.333 mls/hr IVPB Q12H [facility]; Protocol Stop: 04/26/18 09:01 Last Admin: 04/25/18 20:13 Dose: 133.333 mls/hr Quetiapine Fumarate (Seroquel) 200 mg PO DAILY [facility] Last Admin: 04/25/18 10:17 Dose: 200 mg - Labs Labs: 04/22/18 06:44 04/22/18 06:44
[2018-04-26 07:49] VITALS: BP 119/75; PULSE 80; TEMP 97.5; O2SAT 97
[2018-04-26] MEDS: Vancomycin 1 gm/NS 200 ml 1 GM/200 ML BAG IVPB SCH (09:53)
[2018-04-26] MEDS: Enoxaparin 40 mg Syringe SC SCH (09:54)
--- NOTE | 2018-04-26 14:04 | CP.PCM.PN ---
Subjective - Date & Time of Evaluation Date of Evaluation: 04/26/18 Time of Evaluation: 14:03 - Subjective Subjective: PATIENT SEEN AND EXAMINED AT THE BEDSIDE Objective - Vital Signs/Intake and Output Vital Signs (last 24 hours): Temp Pulse Resp BP Pulse Ox 97.5 F L 80 20 119/75 97 04/26/18 07:45 04/26/18 07:45 04/26/18 07:45 04/26/18 07:45 04/26/18 07:45 Intake and Output: 04/26/18 04/26/18 06:59 18:59 Intake Total 500 200 Balance 500 200 - Medications Medications: Current Medications Bupropion HCl (Wellbutrin) 75 mg PO DAILY [facility] Last Admin: 04/26/18 09:53 Dose: 75 mg Enoxaparin Sodium (Lovenox) 40 mg SC DAILY [facility] Last Admin: 04/26/18 09:54 Dose: Not Given Famciclovir (Famvir) 500 mg PO TID [facility]; Protocol Last Admin: 04/26/18 13:36 Dose: 500 mg Quetiapine Fumarate (Seroquel) 200 mg PO DAILY [facility] Last Admin: 04/26/18 09:53 Dose: 200 mg - Labs Labs: 04/22/18 06:44 04/22/18 06:44 Assessment and Plan - Assessment and Plan (Free Text) Assessment: FOLLOW UP WITH DR Ramana HOFFMAN IN HIS OFFICE ----CALL FOR APPOINTMENT FOLLOW UP WITH DR PAPPAS IN HIS OFFICE -----CALL FOR APPOINTMENT CONTINUE HOME MEDICATION NEW PRESCRIPTION GIVEN FAMVIR 500 MG PO TID FOR FOR 5 DAYS ACTIVITY TOLERATED CALL DR Ramana HOFFMAN OR GO TO THE EMERGENCY ROOM IF SYMPTOM RETURN OR WORSENING
== END 2018-04-26 16:20 | disposition home or self-care (01) | DRG 866 ==
LOC: C.ER 08:13 → C.9E 11:18 → C.3T 15:36 → OBSVTOIN 04-21 20:30
PROVIDERS: ADMIT Internal Medicine Nephrology; ATTEND Internal Medicine Nephrology
DX: B01.9 Varicella without complication (principal); L03.90 Cellulitis, unspecified; B86 Scabies; L73.9 Follicular disorder, unspecified; L01.00 Impetigo, unspecified; D72.825 Bandemia; F25.9 Schizoaffective disorder, unspecified; F10.10 Alcohol abuse, uncomplicated; F17.210 Nicotine dependence, cigarettes, uncomplicated; Z59.0 Homelessness